=== PATIENT | female | born 1955 | race Caucasian/White ===

== ENCOUNTER 2019-11-26 12:53 | Inpatient (IN) | payer MEDICARE ==
[~2019-11-26] VITALS: Ht 165.1 cm; Wt 106.6 kg
[2019-11-26] MEDS ORDERED: MULTI-DAY VITAM1 TAB PO (13:18)
[2019-11-26] MEDS ORDERED: B COMPLEX (13:18)
[2019-11-26] MEDS ORDERED: VITAMIN B-121000 MCG PO (13:19)
[2019-11-26] MEDS ORDERED: ALEVE220 MG (13:19)
[2019-11-26] MEDS ORDERED: ZOLOFT100 MG PO (13:19)
[2019-11-26] MEDS ORDERED: TUMERIC (13:19)
[2019-11-26] MEDS ORDERED: VITAMIN B-1100 M1 PO (13:19)
[2019-11-26] MEDS ORDERED: CHROMIUM (13:20)
[2019-11-26] MEDS ORDERED: PROBIOTIC (13:20)
[2019-11-26] MEDS ORDERED: CINNAMON500 MG PO (13:20)
[2019-11-26] MEDS ORDERED: LISINOPRIL10 MG PO (13:20)
[2019-11-26] MEDS ORDERED: NEXIUM20 MG PO (13:20)
[2019-11-26] MEDS ORDERED: ULTRAM50 MG PO (13:21)
[2019-11-26] MEDS ORDERED: PRUNELAX (13:21)
[2019-11-26] MEDS ORDERED: BACTRIM DS TAB1 EAC1 PO (13:21)
[2019-11-26] MEDS ORDERED: BENTYL 20 MG TA20 MG PO (13:22)
[2019-11-26 14:01] LABS: HEMOGLOBIN 14.7 g/dL (12-16); LYMPHOCYTES 9.3 % (15-50); MCH 27.2 pg (26.0-34.0); MCHC 31.3 g/dL (31.0-37.0); MEAN PLATELET VOLUME 8.8 fL (7.4-10.4); NEUTROPHILS 86.6 % (40-80); PLATELET COUNT 259 10x3/uL (130-400); RDW 13.1 % (11.5-14.5); WBC 8.5 10x3/uL (4.8-10.8)
[2019-11-26 14:08] LABS: CALC OSMOLALITY 274 mosm/kg (275-300); CALCIUM 9.4 mg/dL (8.5-10.1); CARBON DIOXIDE 27.7 mmol/L (21.0-32.0); CHLORIDE - SERUM 101 mmol/L (98-107); CREATININE - SERUM 1.3 mg/dL (0.6-1.3); GLUCOSE 96 mg/dL (74-106); POTASSIUM - SERUM 4.5 mmol/L (3.5-5.1); SODIUM 136 mmol/L (136-145); UREA NITROGEN 22 mg/dL (7-18); eGFR NON AFRICAN AMERICAN 44 mL/min (90-120)
[2019-11-26 14:17] LABS: ALBUMIN 3.2 g/dL (3.4-5.0); ALKALINE PHOSPHATASE 141 U/L (30-120); ALT (SGPT) 40 U/L (10-68); AMYLASE - SERUM 46 U/L (25-115); BILIRUBIN - TOTAL 0.25 mg/dL (0.2-1.3); LIPASE 50 U/L (73-393); PROTEIN - SERUM 8.1 g/dL (6.4-8.2)
[2019-11-26 14:18] LABS: TROPONIN-I < 0.017 ng/mL (0.000-0.060)
[2019-11-26 16:10] LABS: BILIRUBIN NEGATIVE (NEGATIVE); GLUCOSE NEGATIVE (NEGATIVE); KETONE NEGATIVE (NEGATIVE); NITRITE POSITIVE (NEGATIVE); SPECIFIC GRAVITY 1.005 (1.005-1.020); UROBILINOGEN NORMAL (NORMAL)
[2019-11-26 16:14] LABS: RED CELLS - URINE 0-5 /hpf (0-5); WHITE CELLS - URINE 25-50 /hpf (NEGATIVE)
[2019-11-26 16:15] LABS: BACTERIA MANY /hpf (NEGATIVE); EPITHELIAL CELLS 0-5 /hpf (0-5)
--- NOTE | 2019-11-26 17:38 | NUR ---
CALL TO FLOOR TO SEE IF ROOM WAS READY, STILL DIRTY.
--- NOTE | 2019-11-26 18:06 | NUR ---
DR. SHEPHERD HERE TO SEE PT.
--- NOTE | 2019-11-26 18:42 | NUR ---
RECEIVED PATIENT FROM ER VIA BED. C/O ABDOMINAL PAIN. NO S/S OF ACUTE DISTRESS NOTED. VITALS STABLE. IV TO RIGHT HAND, NS INFUSING @ 125ML/HR. SITE PATENT WITHOUT REDNESS OR SWELLING. AT BEDSIDE. DENIES ANY NEEDS AT THIS TIME. CALL LIGHT IN REACH. WILL CONTINUE TO MONITOR.
[2019-11-26 20:00] VITALS: BP 98/56
[2019-11-26 20:26] LABS: APTT 27.6 SECONDS (22.8-39.4); INR 1.1 (0.85-1.17); PROTIME 14.2 SECONDS (11.6-15.0)
--- NOTE | 2019-11-26 21:35 | NUR ---
INSTRUCTED THAT HER DIET IS WATER ONLY THEN NPO AFTER MIDNIGHT. PT STILL ASKING FOR FOOD. RATES PAIN IN ABD 6 AND DESCRIBES SHARP CRAMPING. NAUSEATED. REPORTS BM TODAY. NS @ 125 MLHR INFUSING IN RT HAND. MEDICATED WITH DILAUDID FOR C/O ABD PAIN. OFFERED ZOFRAN BUT REFUSED AT THIS TIME. GEN WEAKNESS NOTED. ASSISTED UP TO BR TO VOID. CL NOT WORKING AT THIS TIME. NOTIFIED ASSET PROTECTION ASSOCIATE WHO WILL CONTACT MAINTENANCE.
[2019-11-26 21:51] VITALS: BP 98/56; BMI 38.3
--- NOTE | 2019-11-26 22:05 | NUR ---
VOMITED ONCE APPROX 200 ML OF GREEN FLUID. MEDICATED WITH ZOFRAN AT THIS TIME.
--- NOTE | 2019-11-26 23:00 | NUR ---
MAINTENANCE HERE AND FIXED CALL LIGHT.
--- NOTE | 2019-11-27 02:28 | NUR ---
STABLE MANAGER DILAUDID STARTED AT THIS TIME. DENIES PAIN AT PRESENT. INSTRUCTED ON USE AND SHE VERBALIZED UNDERSTANDING.
[2019-11-27 04:00] VITALS: BP 130/63
[2019-11-27 06:02] LABS: HEMATOCRIT 38.1 % (36.0-48.0); HEMOGLOBIN 12.1 g/dL (12-16); LYMPHOCYTES 12.6 % (15-50); MCH 27.7 pg (26.0-34.0); MCHC 31.8 g/dL (31.0-37.0); MCV 87.2 fL (80.0-100.0); MEAN PLATELET VOLUME 8.9 fL (7.4-10.4); NEUTROPHILS 77.4 % (40-80); PLATELET COUNT 247 10x3/uL (130-400); RBC 4.37 10x6/uL (4.00-5.40); RDW 13.1 % (11.5-14.5); WBC 9.3 10x3/uL (4.8-10.8)
[2019-11-27 06:19] LABS: ALBUMIN 2.4 g/dL (3.4-5.0); ANION GAP 10.6 mmol/L (8-16); BILIRUBIN - TOTAL 0.33 mg/dL (0.2-1.3); CARBON DIOXIDE 25.7 mmol/L (21.0-32.0); CREATININE - SERUM 1.1 mg/dL (0.6-1.3); POTASSIUM - SERUM 4.3 mmol/L (3.5-5.1); PROTEIN - SERUM 6.3 g/dL (6.4-8.2)
[2019-11-27 09:08] VITALS: BP 125/66
--- NOTE | 2019-11-27 11:31 | NUR ---
I have reviewed this patient and I concur with the Shift Assessment completed by the Licensed Practical Nurse today this shift.
[2019-11-27 13:06] VITALS: BP 130/56
[2019-11-27 14:26] VITALS: Ht 165.1 cm; Wt 106.6 kg
[2019-11-27 18:04] VITALS: BP 146/77
[2019-11-27 20:00] VITALS: BP 127/60
--- NOTE | 2019-11-27 22:00 | NUR ---
00B, AMBULATING INDEPENDENTLY IN ROOM. DISCONNECTED IV AND COVERED FOR SHOWER, CTM.
[2019-11-28 04:00] VITALS: BP 154/73
[2019-11-28 06:54] LABS: HEMATOCRIT 40.9 % (36.0-48.0); LYMPHOCYTES 16.4 % (15-50); MCH 27.7 pg (26.0-34.0); MCHC 31.8 g/dL (31.0-37.0); MEAN PLATELET VOLUME 8.8 fL (7.4-10.4); NEUTROPHILS 69.7 % (40-80); PLATELET COUNT 244 10x3/uL (130-400); RDW 12.5 % (11.5-14.5)
[2019-11-28 07:00] LABS: WBC 6.7 10x3/uL (4.8-10.8)
[2019-11-28 07:30] LABS: ALBUMIN 2.6 g/dL (3.4-5.0); ANION GAP 13.6 mmol/L (8-16); BILIRUBIN - TOTAL 0.27 mg/dL (0.2-1.3); CALCIUM 8.6 mg/dL (8.5-10.1); CARBON DIOXIDE 24.5 mmol/L (21.0-32.0); MAGNESIUM - SERUM 2.3 mg/dL (1.8-2.4); PHOSPHOROUS 3.1 mg/dL (2.5-4.9); POTASSIUM - SERUM 4.1 mmol/L (3.5-5.1); PROTEIN - SERUM 6.9 g/dL (6.4-8.2)
--- NOTE | 2019-11-28 08:17 | NUR ---
ALERT AND ORIENTED. LUNGS CLEAR BILATERALLY. HEART SOUNDS S1 AND S2 HEARD IN ALL TAVARES. BOWEL SOUNDS ACTIVE X 4. DENIES NEEDS. BED LOW. CALL GRAVES AND PERSONAL ITEMS IN REACH. WILL CONTINUE TO MONITOR.
[2019-11-28 09:29] VITALS: BP 148/71
--- NOTE | 2019-11-28 12:50 | NUR ---
PATIENT REQUESTING HOME MEDS RESTARTED. SPOKE WITH TATO RODRIGUEZ AND STATES WILL TAKE CARE OF.
[2019-11-28 13:00] VITALS: BP 158/71
--- NOTE | 2019-11-28 15:13 | NUR ---
RESTING IN BED. DENIES NEEDS. WILL CONTINUE TO MONITOR.
[2019-11-28 17:55] VITALS: BP 148/70
[2019-11-28 20:00] VITALS: BP 154/81
[2019-11-29 04:00] VITALS: BP 167/77
--- NOTE | 2019-11-29 04:48 | NUR ---
I have reviewed this patient and I concur with the Shift Assessment completed by the Licensed Practical Nurse today this shift.
[2019-11-29 05:54] LABS: HEMATOCRIT 41.3 % (36.0-48.0); HEMOGLOBIN 13.2 g/dL (12-16); LYMPHOCYTES 24.1 % (15-50); MCH 27.7 pg (26.0-34.0); MCV 86.6 fL (80.0-100.0); MEAN PLATELET VOLUME 9.2 fL (7.4-10.4); NEUTROPHILS 62.2 % (40-80); PLATELET COUNT 282 10x3/uL (130-400); RBC 4.77 10x6/uL (4.00-5.40); RDW 12.8 % (11.5-14.5); WBC 6.6 10x3/uL (4.8-10.8)
[2019-11-29 05:56] LABS: ALBUMIN 2.4 g/dL (3.4-5.0); ALKALINE PHOSPHATASE 95 U/L (30-120); ALT (SGPT) 24 U/L (10-68); BILIRUBIN - TOTAL 0.23 mg/dL (0.2-1.3); CALC OSMOLALITY 279 mosm/kg (275-300); CALCIUM 8.7 mg/dL (8.5-10.1); CARBON DIOXIDE 25.2 mmol/L (21.0-32.0); CHLORIDE - SERUM 108 mmol/L (98-107); CREATININE - SERUM 0.8 mg/dL (0.6-1.3); GLUCOSE 108 mg/dL (74-106); PHOSPHOROUS 2.4 mg/dL (2.5-4.9); POTASSIUM - SERUM 3.6 mmol/L (3.5-5.1); PROTEIN - SERUM 6.7 g/dL (6.4-8.2); SODIUM 141 mmol/L (136-145); eGFR NON AFRICAN AMERICAN 76 mL/min (90-120)
[2019-11-29 06:33] LABS: UREA NITROGEN 8 mg/dL (7-18)
--- NOTE | 2019-11-29 07:41 | NUR ---
ALERT AND ORIENTED. LUNGS CLEAR BILATERALLY. HEART SOUNDS S1 AND S2 HEARD IN ALL TAVARES. BOWEL SOUNDS ACTIVE X 4. IV TO RFA PATENT WITHOUT REDNESS. DENIES NEEDS. BED LOW. CALL GRAVES AND PERSONAL ITEMS IN REACH. WILL CONTINUE TO MONITOR.
[2019-11-29 08:30] VITALS: BP 176/88
[2019-11-29] MEDS ORDERED: LEVOFLOXACIN500 MG PO (10:06)
[2019-11-29] MEDS ORDERED: FLAGYL500 MG PO (10:06)
[2019-11-29] MEDS ORDERED: ZOFRAN4 MG PO (10:07)
--- NOTE | 2019-11-29 11:48 | NUR ---
SPOKE WITH TATO RODRIGUEZ AGAIN ABOUT PATIENT'S BP. BP 179/91. NO ORDERS GIVEN.
--- NOTE | 2019-11-29 12:02 | MORECARE ---
CASE MANAGEMENT DISCHARGE SUMMARY PATIENT: ROBERT HORVATH UNIT: [id number] ADM DATE: 11/26/19 AGE: 64 : 55 SEX: F ROOM/BED: D.2224 AUTHOR: JAX GUTIERREZ PHYSICIAN: REFERRING PHYSICIAN: SERENE KELLEY MD DATE OF SERVICE: 11/29/19 Discharge Plan Patient Name: ROB[facility]ATH [facility] [facility] 1955 Planned Disposition: Home Anticipated Discharge Date: Discharge Date: Expected LOS: Initial Reviewer: [email or web address] Initial Review Date: 11/26/2019 Generated: 11/29/19 1:02 pm Patient Name: ROBERT HORVATH Page [phone] at 1202 All edits/amendments must be made on the electronic document DICTATION DATE: 11/29/19 1202 FREEZER WORKER: SONIA 11/29/19 1202 RPT#: [id number] DC DATE: STATUS: ADM IN [facility] [address] [place] [address] END OF REPORT
--- NOTE | 2019-11-29 12:10 | MORECARE ---
CASE MANAGEMENT DISCHARGE SUMMARY PATIENT: ROBERT HORVATH UNIT: [id number] ADM DATE: 11/26/19 AGE: 64 : 55 SEX: F ROOM/BED: D.2224 AUTHOR: JAX GUTIERREZ PHYSICIAN: REFERRING PHYSICIAN: SERENE KELLEY MD DATE OF SERVICE: 11/29/19 Discharge Plan Patient Name: ROBERT HORVATH Facility: [facility]:[place] : 1955 Planned Disposition: Home Anticipated Discharge Date: Discharge Date: Expected LOS: Initial Reviewer: [email or web address] Initial Review Date: 11/26/2019 Generated: 11/29/19 1:10 pm Comments DCP- Discharge Planning Updated by [email or web address]: Reena Mitchell on 11/29/19 11:[address] Patient Name: ROBERT HORVATH Admission Status: ER Accout number: [id number] Admission Date: 11-26-2019 : 1955 Admission Diagnosis: Attending: MALOU Current LOS: 3 Anticipated DC Date: Planned Disposition: Home Primary Insurance: [facility] MEDICARE SOLUTIONS Discharge Planning Comments: CM met with patient at bedside after explaining CM role and obtaining verbal consent. CM discussed availability / needs of home health, REHAB and medical equipment. PATIENT DENIES ANY DISCHARGE NEEDS. IMM SIGNED. ANTICIPATES DISCHARGE TO HOME SOON. Senior Svp: Reena Mitchell DCPIA - Discharge Planning Initial Assessment Updated by [email or web address]: Reena Mitchell on 11/29/19 12:05 pm * Is the patient Alert and Oriented? Yes * PCP MADINA * Pharmacy [facility] * Preadmission Environment Home with Family * ADLs Independent * Equipment None * Community resources currently utilized None * Additional services required to return to the preadmission environment? No * Can the patient safely return to the preadmission environment? Yes * Has this patient been hospitalized within the prior 30 days at any hospital? No Last DP export: 11/29/19 11:02 a Patient Name: ROBERT HORVATH Page [phone] at 1210 All edits/amendments must be made on the electronic document DICTATION DATE: 11/29/19 1210 HAND ENGRAVER: SONIA 11/29/19 1210 RPT#: [id number] DC DATE: STATUS: ADM IN [facility] [address] [place] [address] END OF REPORT
--- NOTE | 2019-11-29 12:13 | NUR ---
PRN APRESOLINE GIVEN FOR BP 179/91.
--- NOTE | 2019-11-29 12:57 | NUR ---
PATIENT SLEEPING. WILL CONTINUE TO MONITOR.
[2019-11-29 20:00] VITALS: BP 144/81
--- NOTE | 2019-11-29 20:00 | NUR ---
PT AT FIRST REQUESTED MIRALAX BE MIXED WITH CRANBERRY JUICE. WHEN RETURNED TO ROOM, PT WAS EXITING BATHROOM. STATED, "I DON'T THINK I WANNA DRINK THAT MIRALAX. I THINK AFTER THOSE FIRST FEW BOWEL MOVEMENTS, THE FLOOD MADISON HAVE BURST!"
[2019-11-30] VITALS: BP 143/75
--- NOTE | 2019-11-30 02:00 | NUR ---
IV LEAKING. PT REPORTS PAIN TO INFUSION SITE. DCd WITH CATH INTACT. CTM.
--- NOTE | 2019-11-30 03:00 | NUR ---
I have reviewed this patient and I concur with the Shift Assessment completed by the Licensed Practical Nurse today this shift.
[2019-11-30 04:00] VITALS: BP 154/86
[2019-11-30 05:33] LABS: ALBUMIN 2.6 g/dL (3.4-5.0); BILIRUBIN - TOTAL 0.32 mg/dL (0.2-1.3); CALCIUM 9.1 mg/dL (8.5-10.1); CARBON DIOXIDE 24.5 mmol/L (21.0-32.0); CREATININE - SERUM 0.9 mg/dL (0.6-1.3); PHOSPHOROUS 2.9 mg/dL (2.5-4.9); POTASSIUM - SERUM 3.5 mmol/L (3.5-5.1)
[2019-11-30 05:42] LABS: HEMATOCRIT 43.8 % (36.0-48.0); HEMOGLOBIN 13.8 g/dL (12-16); LYMPHOCYTES 13.1 % (15-50); MCH 27.2 pg (26.0-34.0); MCHC 31.5 g/dL (31.0-37.0); MCV 86.4 fL (80.0-100.0); MEAN PLATELET VOLUME 8.9 fL (7.4-10.4); NEUTROPHILS 74.9 % (40-80); PLATELET COUNT 310 10x3/uL (130-400); RBC 5.07 10x6/uL (4.00-5.40); RDW 13.1 % (11.5-14.5); WBC 7.7 10x3/uL (4.8-10.8)
--- NOTE | 2019-11-30 07:51 | NUR ---
PT IS RESTING IN BED WITH EYES OPEN. RESPIRATIONS ARE EVEN AND UNLABORED. PT IS AAO X 4. PT REPORTS BM THROUGHOUT RADIO INTERFERENCE EXPERT. PT DENIES PRESENCE OF N/V/PAIN AT THIS TIME. BS ACTIVE X 4. BED IS IN THE LOWEST POSITION. CALL LIGHT AND BEDSIDE TABLE ARE WITHIN REACH. SIDE RAILS X 2. PT DENIES FURTHER NEEDS. WILL CONT TO MONITOR.
[2019-11-30 09:17] VITALS: BP 138/93
[2019-11-30] MEDS ORDERED: MIRALAX17 GM PO (09:30)
--- NOTE | 2019-11-30 10:53 | NUR ---
ALL DISCHARGE INSTRUCTIONS COVERED WITH PT AND PT FAMILY MEMBER. PT DENIES FURTHER QUESTIONS/CONCERNS/NEEDS AT THIS TIME. ALL DISCHARGE PAPERS SIGNED. SIGNED DC PAPERS PLACED IN PT CHART. PT ESCORTED FROM ROOM VIA WHEELCHAIR BY KINJAL MIGUEL LPN. PT THANKS THIS NURSE FOR CARE GIVEN DURING THIS SHIFT. PT STATES THAT SHE HAS ALL PERSONAL BELONGINGS.
--- NOTE | 2019-11-30 15:19 | MORECARE ---
CASE MANAGEMENT DISCHARGE SUMMARY PATIENT: ROBERT HORVATH UNIT: [id number] ADM DATE: 11/26/19 AGE: 64 : 55 SEX: F ROOM/BED: D.2224 AUTHOR: BRENDA,DOC PHYSICIAN: REFERRING PHYSICIAN: SERENE KELLEY MD DATE OF SERVICE: 11/30/19 Discharge Plan Patient Name: ROBERT HORVATH Facility: [facility]:[place] : 1955 Planned Disposition: Home Anticipated Discharge Date: Discharge Date: 11/30/2019 Expected LOS: Initial Reviewer: [email or web address] Initial Review Date: 11/26/2019 Generated: 11/30/19 4:18 pm Comments DCP- Discharge Planning Updated by [email or web address]: Reena Mitchell on 11/29/19 11:[address] Patient Name: ROBERT HORVATH Admission Status: ER Accout number: [id number] Admission Date: 11-26-2019 : 1955 Admission Diagnosis: Attending: MALOU Current LOS: 3 Anticipated DC Date: Planned Disposition: Home Primary Insurance: [facility] MEDICARE SOLUTIONS Discharge Planning Comments: CM met with patient at bedside after explaining CM role and obtaining verbal consent. CM discussed availability / needs of home health, REHAB and medical equipment. PATIENT DENIES ANY DISCHARGE NEEDS. IMM SIGNED. ANTICIPATES DISCHARGE TO HOME SOON. Toe Puncher: Reena Mitchell DCPIA - Discharge Planning Initial Assessment Updated by [email or web address]: Reena Mitchell on 11/29/19 12:05 pm * Is the patient Alert and Oriented? Yes * PCP MADINA * Pharmacy [facility] * Preadmission Environment Home with Family * ADLs Independent * Equipment None * Community resources currently utilized None * Additional services required to return to the preadmission environment? No * Can the patient safely return to the preadmission environment? Yes * Has this patient been hospitalized within the prior 30 days at any hospital? No Coverage Notice Reviewer: [id number] - Reena Mitchell Notice Issued Date-Time: 11/30/2019 10:17 Notice Type: IM Discharge Notice Notice Delivered To: Patient Relationship to Patient: Network Announcer Name: Delivery Method: - Jennifer Days: Prior Verbal Notification: Recipient Understood Notice: Recipient Signature: Med Rec Note Co-signed by Attending: Coverage Notice Comment: Last DP export: 7/15/20 11:10 a Patient Name: ROBERT HORVATH Page [phone] at 1519 All edits/amendments must be made on the electronic document DICTATION DATE: 11/30/198 FIELD CARE ADVOCATE: SONIA 11/30/19 1518 RPT#: [id number] DC DATE:11/30/19 STATUS: DIS IN [facility] [address] [place] [address] END OF REPORT
--- NOTE | 2019-12-01 08:16 | MORECARE ---
CASE MANAGEMENT DISCHARGE SUMMARY PATIENT: ROBERT HORVATH UNIT: [id number] ADM DATE: 11/26/19 AGE: 64 : 55 SEX: F ROOM/BED: D.2224 AUTHOR: BRENDA,DOC PHYSICIAN: REFERRING PHYSICIAN: SERENE KELLEY MD DATE OF SERVICE: 12/01/19 Discharge Plan Patient Name: ROBERT HORVATH Facility: [facility]:[place] : 1955 Planned Disposition: Home Anticipated Discharge Date: Discharge Date: 11/30/2019 Expected LOS: Initial Reviewer: [email or web address] Initial Review Date: 11/26/2019 Generated: 12/01/19 9:15 am Comments DCP- Discharge Planning Updated by [email or web address]: Reena Mitchell on 11/29/19 11:[address] Patient Name: ROBERT HORVATH Admission Status: ER Accout number: [id number] Admission Date: 11-26-2019 : 1955 Admission Diagnosis: Attending: MALOU Current LOS: 3 Anticipated DC Date: Planned Disposition: Home Primary Insurance: [facility] MEDICARE SOLUTIONS Discharge Planning Comments: CM met with patient at bedside after explaining CM role and obtaining verbal consent. CM discussed availability / needs of home health, REHAB and medical equipment. PATIENT DENIES ANY DISCHARGE NEEDS. IMM SIGNED. ANTICIPATES DISCHARGE TO HOME SOON. Informaticist: Reena Mitchell DCPIA - Discharge Planning Initial Assessment Updated by [email or web address]: Reena Mitchell on 11/29/19 12:05 pm * Is the patient Alert and Oriented? Yes * PCP MADINA * Pharmacy [facility] * Preadmission Environment Home with Family * ADLs Independent * Equipment None * Community resources currently utilized None * Additional services required to return to the preadmission environment? No * Can the patient safely return to the preadmission environment? Yes * Has this patient been hospitalized within the prior 30 days at any hospital? No Coverage Notice Reviewer: [id number] - Reena Mitchell Notice Issued Date-Time: 11/30/2019 10:17 Notice Type: IM Discharge Notice Notice Delivered To: Patient Relationship to Patient: Sales And Marketing Engineer Name: Delivery Method: - Jennifer Days: Prior Verbal Notification: Recipient Understood Notice: Recipient Signature: Med Rec Note Co-signed by Attending: Coverage Notice Comment: Last DP export: 7/16/20 2:18 p Patient Name: ROBERT HORVATH Page 38686 at 0816 All edits/amendments must be made on the electronic document DICTATION DATE: 12/01/19814 AUDOGRAPH OPERATOR: SONIA 12/01/19814 RPT#: [id number] DC DATE:11/30/19 STATUS: DIS IN [facility] [address] [place] [address] END OF REPORT
== END 2019-11-30 11:30 | disposition home or self-care (01) | DRG 391 ==
LOC: D.ER 12:53 → D.MS 16:46
PROVIDERS: Family Medicine; Family Medicine Adult Medicine; ADMIT Family Medicine; ATTEND Family Medicine
DX: K57.92 Diverticulitis of intestine, part unspecified, without perforation or abscess without bleeding (principal); K65.9 Peritonitis, unspecified; N39.0 Urinary tract infection, site not specified; F32.9 Major depressive disorder, single episode, unspecified; I10 Essential (primary) hypertension

== ENCOUNTER 2019-12-04 14:43 | Inpatient (IN) | payer MEDICARE ==
[~2019-12-04] VITALS: Ht 165.1 cm; Wt 106.2 kg
[~2019-12-04 14:43] MED LIST: ALEVE220 MG; B COMPLEX; BACTRIM DS TAB1 EAC1 PO; BENTYL 20 MG TA20 MG PO; CHROMIUM; CINNAMON500 MG PO; FLAGYL500 MG PO; LEVOFLOXACIN500 MG PO; LISINOPRIL10 MG PO; MIRALAX17 GM PO; MULTI-DAY VITAM1 TAB PO; NEXIUM20 MG PO; PROBIOTIC PO; PRUNELAX; TUMERIC PO; ULTRAM50 MG PO; VITAMIN B-1100 M1 PO; VITAMIN B-121000 MCG PO; ZOFRAN4 MG PO; ZOLOFT100 MG PO
[2019-12-04 15:44] LABS: BASOPHILS 0.1 % (0-2); EOSINOPHILS 0.3 % (0-7); HEMATOCRIT 45.7 % (36.0-48.0); HEMOGLOBIN 14.8 g/dL (12-16); IMMATURE GRANULOCYTES 0.3 % (0-5); LYMPHOCYTES 8.4 % (15-50); MCH 28.1 pg (26.0-34.0); MCHC 32.4 g/dL (31.0-37.0); MCV 86.7 fL (80.0-100.0); MONOCYTES 8.3 % (2-11); NEUTROPHILS 82.6 % (40-80); PLATELET COUNT 291 10x3/uL (130-400); RBC 5.27 10x6/uL (4.00-5.40); RDW 13.8 % (11.5-14.5); WBC 16.2 10x3/uL (4.8-10.8)
[2019-12-04 16:06] LABS: CALC OSMOLALITY 267 mosm/kg (275-300); CALCIUM 9.4 mg/dL (8.5-10.1); CARBON DIOXIDE 27.6 mmol/L (21.0-32.0); CHLORIDE - SERUM 98 mmol/L (98-107); CREATININE - SERUM 1.1 mg/dL (0.6-1.3); GLUCOSE 119 mg/dL (74-106); POTASSIUM - SERUM 4.2 mmol/L (3.5-5.1); SODIUM 132 mmol/L (136-145); UREA NITROGEN 17 mg/dL (7-18); eGFR NON AFRICAN AMERICAN 53 mL/min (90-120)
[2019-12-04 16:15] LABS: ALKALINE PHOSPHATASE 116 U/L (30-120); ALT (SGPT) 40 U/L (10-68); AMYLASE - SERUM 35 U/L (25-115); BILIRUBIN - TOTAL 0.65 mg/dL (0.2-1.3)
[2019-12-04 16:29] LABS: LIPASE 45 U/L (73-393); TROPONIN-I < 0.017 ng/mL (0.000-0.060)
[2019-12-04 16:48] VITALS: BP 120/61
--- NOTE | 2019-12-04 16:49 | NUR ---
URINE SPEC COLLECTED, LABELED AT BS AND SENT TO LAB
[2019-12-04 17:07] LABS: BILIRUBIN NEGATIVE (NEGATIVE); GLUCOSE NEGATIVE (NEGATIVE); KETONE NEGATIVE (NEGATIVE); NITRITE NEGATIVE (NEGATIVE); UROBILINOGEN NORMAL (NORMAL)
[2019-12-04 17:09] LABS: BACTERIA MODERATE /hpf (NEGATIVE); EPITHELIAL CELLS 0-5 /hpf (0-5); RED CELLS - URINE 0-5 /hpf (0-5); WHITE CELLS - URINE 25-50 /hpf (NEGATIVE)
[2019-12-04 18:32] VITALS: BP 109/51
--- NOTE | 2019-12-04 18:44 | NUR ---
REPORT CALLED TO LEONILA CROOK
--- NOTE | 2019-12-04 18:50 | NUR ---
TRANSPORTED TO ROOM #2239, CONDITION STABLE
[2019-12-04 20:00] VITALS: BP 120/61
[2019-12-04 22:44] LABS: APTT 35.6 SECONDS (22.8-39.4); INR 1.14 (0.85-1.17); PROTIME 14.5 SECONDS (11.6-15.0)
[2019-12-05] VITALS (7 sets, daily range): BP systolic 93–131; BP diastolic 53–91; Ht 165.1 cm; Wt 106.2 kg
--- NOTE | 2019-12-05 01:03 | NUR ---
REC'D. CHGE OF SHIFT WALKING ROUNDS IN BED WATCHING TV DENIES ANY DISCOMFORT AT PRESENT TIME.NO NAUSEA REMAINS NPO ORDERED VOICES UNDERSTANDING.WILL CONTINUE TO MONITOR FOR ANY CHGES AND FOLLOW CURRENT PLAN OF CARE,GROSSLY CACHIL DEHE.
[2019-12-05 06:02] LABS: BASOPHILS 0.2 % (0-2); EOSINOPHILS 0.9 % (0-7); HEMATOCRIT 40.6 % (36.0-48.0); HEMOGLOBIN 12.9 g/dL (12-16); IMMATURE GRANULOCYTES 0.3 % (0-5); LYMPHOCYTES 13.7 % (15-50); MCH 27.7 pg (26.0-34.0); MCHC 31.8 g/dL (31.0-37.0); MCV 87.1 fL (80.0-100.0); MEAN PLATELET VOLUME 9.1 fL (7.4-10.4); MONOCYTES 10.6 % (2-11); NEUTROPHILS 74.3 % (40-80); PLATELET COUNT 249 10x3/uL (130-400); RBC 4.66 10x6/uL (4.00-5.40); WBC 12.2 10x3/uL (4.8-10.8)
[2019-12-05 06:48] LABS: ALBUMIN 2.4 g/dL (3.4-5.0); ANION GAP 12.4 mmol/L (8-16); BILIRUBIN - TOTAL 0.47 mg/dL (0.2-1.3); CALCIUM 8.9 mg/dL (8.5-10.1); CARBON DIOXIDE 24.8 mmol/L (21.0-32.0); MAGNESIUM - SERUM 2.2 mg/dL (1.8-2.4); POTASSIUM - SERUM 4.2 mmol/L (3.5-5.1); PROTEIN - SERUM 6.9 g/dL (6.4-8.2)
--- NOTE | 2019-12-05 07:40 | NUR ---
ALERT AND ORIENTED. LUNGS CLEAR BILATERALLY. HEART SOUNDS S1 AND S2 HEARD IN ALL TAVARES. BOWEL SOUNDS ACTIVE X 4. NEED TO START IV ON PATIENT. REQUESTING TO TAKE SHOWER FIRST. SUPPLIES GIVEN. DENIES FURTHER NEEDS. BED LOW. CALL GRAVES AND PERSONAL ITEMS IN REACH. WILL CONTINUE TO MONITOR.
--- NOTE | 2019-12-05 08:33 | NUR ---
IV SITED TO RFA AFTER ONE ATTEMPT WITH 20GAUGE.
--- NOTE | 2019-12-05 09:41 | NUR ---
CONSENTS OBTAINED FOR PROCEDURE.
--- NOTE | 2019-12-05 11:40 | NUR ---
RESTING IN BED. AT BEDSIDE. DENIES NEEDS. WILL CONTINUE TO MONITOR.
[2019-12-06] VITALS: BP 142/82
--- NOTE | 2019-12-06 00:16 | NUR ---
REC'D. CHGE OF SHIFT WALKING ROUNDS,IN BED AT BEDSIDE,DENIES ANY DISCOMFORT AT PRESENT TIME NO NAUSEA REMAINS NPO WILL CONTINUE TO MONITOR FOR ANY CHGES AND FOLLOW CURRENT PLAN OF CARE.
[2019-12-06 04:00] VITALS: BP 119/54
[2019-12-06 05:34] LABS: BASOPHILS 0.1 % (0-2); HEMATOCRIT 40.1 % (36.0-48.0); HEMOGLOBIN 12.5 g/dL (12-16); IMMATURE GRANULOCYTES 0.3 % (0-5); LYMPHOCYTES 14.2 % (15-50); MCH 27.5 pg (26.0-34.0); MCHC 31.2 g/dL (31.0-37.0); MCV 88.3 fL (80.0-100.0); MONOCYTES 9.1 % (2-11); NEUTROPHILS 75.3 % (40-80); PLATELET COUNT 245 10x3/uL (130-400); RBC 4.54 10x6/uL (4.00-5.40); WBC 10.2 10x3/uL (4.8-10.8)
[2019-12-06 06:05] LABS: ALBUMIN 2.3 g/dL (3.4-5.0); ANION GAP 10.2 mmol/L (8-16); BILIRUBIN - TOTAL 0.43 mg/dL (0.2-1.3); CALCIUM 8.8 mg/dL (8.5-10.1); CREATININE - SERUM 0.9 mg/dL (0.6-1.3); MAGNESIUM - SERUM 2.1 mg/dL (1.8-2.4); POTASSIUM - SERUM 4.2 mmol/L (3.5-5.1); PROTEIN - SERUM 6.8 g/dL (6.4-8.2)
--- NOTE | 2019-12-06 07:15 | NUR ---
REC'D IN BED AWAKE AND ALERT. RESP EVEN AND UNLABORED WITH NO DISTRESS NOTED. CAN EXPRESS NEEDS AND WANTS. NO C/O NOTED OR VOICED. DENIES ANY PAIN OR DISCOMFORT AT THIS TIME. ASSESSMENT COMPLETED. C/L IN REACH AT BEDSIDE.
[2019-12-06 08:00] VITALS: BP 149/79
--- NOTE | 2019-12-06 08:31 | NUR ---
PT OFF FLOOR TO SURGERY SUITE AT THIS TIME IN STABLE CONDITION UPON DEPARTURE. AT SIDE.
--- NOTE | 2019-12-06 12:46 | NUR ---
EMPTIED PTS GABBY DRAIN OF 85CC BLOOD FROM L.ABDOMEN. MILKED TUBING AND GABBY BACK COMPRESSED.
[2019-12-06 13:03] VITALS: BP 153/72
--- NOTE | 2019-12-06 13:11 | NUR ---
JUST REC'D BACK FROM SURGERY AT THIS TIME AWAKE OFF AND ON. RESP EVEN AND UNLABORED WITH NO DISTRESS NOTED. CAN EXPRESS NEEDS AND WANTS. HAS MIDLINE INCISION WITH DRESSING CLEAN DRY AND INTACT, DRAIN TO RT LOWER QUADRANT AND OSTOMY TO LLQ. PT C/O SEVERE PAIN AT THIS TIME. AND C/L IN REACH AT BEDSIDE.
[2019-12-06 16:11] VITALS: BP 117/65
--- NOTE | 2019-12-06 19:56 | NUR ---
I have reviewed this patient and I concur with the Shift Assessment completed by the Licensed Practical Nurse today this shift.
[2019-12-06 20:00] VITALS: BP 120/61
--- NOTE | 2019-12-06 21:18 | NUR ---
REC'D CHGE OF SHIFT WALKING ROUNDS.IN BED TURNED TO LEFT SIDE .MIDLINE DRSG DRY AND INTACT.GABBY DRAIN LLQ, RIGHT COLOSTOMY INTACT MARINO PATENT DRAING CRISTEL COLORED URINE. AT BEDSIDE WILL CONTINUE TO MONITOR FOR ANY CGES AND FOLLOW CURRENT PLAN OF CARE
[2019-12-07 04:00] VITALS: BP 87/56
--- NOTE | 2019-12-07 06:50 | NUR ---
I have reviewed this patient and I concur with the Shift Assessment completed by the Licensed Practical Nurse today this shift.
[2019-12-07 07:13] LABS: BASOPHILS 0.1 % (0-2); EOSINOPHILS 0.1 % (0-7); HEMOGLOBIN 11.9 g/dL (12-16); IMMATURE GRANULOCYTES 0.7 % (0-5); LYMPHOCYTES 6.7 % (15-50); MCH 27.2 pg (26.0-34.0); MCHC 29.8 g/dL (31.0-37.0); MONOCYTES 7.1 % (2-11); NEUTROPHILS 85.3 % (40-80); PLATELET COUNT 288 10x3/uL (130-400); RBC 4.37 10x6/uL (4.00-5.40); RDW 14.2 % (11.5-14.5)
[2019-12-07 07:28] LABS: MCV 91.5 fL (80.0-100.0); WBC 14.6 10x3/uL (4.8-10.8)
[2019-12-07 07:37] LABS: ALBUMIN 2.2 g/dL (3.4-5.0); BILIRUBIN - TOTAL 0.65 mg/dL (0.2-1.3); CALCIUM 8.8 mg/dL (8.5-10.1); CARBON DIOXIDE 28.2 mmol/L (21.0-32.0); MAGNESIUM - SERUM 2.3 mg/dL (1.8-2.4); PROTEIN - SERUM 6.5 g/dL (6.4-8.2)
[2019-12-07 07:38] LABS: ANION GAP 10.2 mmol/L (8-16); CREATININE - SERUM 1.9 mg/dL (0.6-1.3); POTASSIUM - SERUM 5.4 mmol/L (3.5-5.1)
[2019-12-07 08:00] VITALS: BP 100/64
--- NOTE | 2019-12-07 08:41 | OP ---
PATIENT NAME: ROBERT HORVATH MEDICAL RECORD: [id number] :[birth year] LOCATION:[id number] ADMISSION DATE:12/04/19 SURGEON: NICOLASA AHMADI MD DATE OF OPERATION: 12/06/2019 PREOPERATIVE DIAGNOSIS: Perforated sigmoid diverticulitis. POSTOPERATIVE DIAGNOSES: 1. Perforated sigmoid diverticulitis with coloenteric fistula. 2. Intra-abdominal abscess. ANESTHESIA: General SURGEON: Nicolasa Ahmadi MD PROCEDURE PERFORMED: 1. Laparoscopic drainage of intra-abdominal abscess. 2. Laparoscopic mobilization of the splenic flexure. 3. Sigmoid colectomy with diverting loop ileostomy. 4. Appendectomy. 5. Small bowel resection. SPECIMENS: Sigmoid colon, appendix, small bowel resection. Case was grossly contaminated. OPERATIVE COURSE: After consent was obtained, the patient was taken to the operating room and placed in supine position on the operating table. Next, general anesthesia was given via endotracheal intubation after a timeout was performed to confirm correct patient and procedure. The abdomen was then prepped and draped in typical sterile fashion. Ioban dressing was placed. The patient was placed into stirrups. The perineum was prepped and draped in typical sterile fashion. Local anesthetic was injected just below the umbilicus. A stab incision was made with an 11-blade scalpel. Using a 5-mm bladeless optical trocar, the abdomen was entered under direct laparoscopic vision. Adequate pneumoperitoneum was achieved. Two additional trocars were then placed, 5 mm in the suprapubic region, 5 mm in the right lower quadrant, both were placed under direct laparoscopic vision. The sigmoid colon was densely adherent to the pelvic side wall along the left pelvic sidewall. There were 2 loops of densely adherent small bowel to the sigmoid colon along the left pelvic side wall into the deep pelvis. Gentle dissection was started to attempt to tease the sigmoid colon off the pelvic side wall during this time to delineate anatomy. The healthy tissue proximal was taken. The white line of Toldt was taken down with the Harmonic scalpel mobilizing to the level of the splenic flexure. As the sigmoid colon was teased off the pelvic sidewall, abscess noted on the preoperative CT scan was encountered. It was copiously suctioned and irrigated. At this time, dissection continued down into the deep pelvis. Again, further mobilizing the diseased portion of colon at the pelvic sidewall on the medial side of the sigmoid colon. There was very dense adhesions to a loop of small bowel that was looping into the deep pelvis. This was gently teased and dissected away. Once this was completed, there was noted there was an active open fistula between the colon and small bowel. At this time, I decided I would perform a sigmoid colectomy due to the extensive disease of the sigmoid colon. Small low midline incision was made, dissecting through the subcutaneous fascia using electrocautery. Fascia was opened with electrocautery. An Long wound retractor was placed. The small bowel was OPERATIVE REPORT [id number] ROBERT HORVATH extracorporealized. The area of distal ileum had a fistula tract in sigmoid colon. I started to do a small bowel resection. A ipta-nd-xpau anastomosis was performed. Several stay sutures were placed in the small bowel. Enterotomies were made with the Harmonic scalpel. A [id number] anastomosis performed with GI stapler. The common enterotomy was then closed with a second fire of the KAREN stapler. The remaining portion of the mesentery was taken with the Harmonic scalpel and the small bowel section was passed off the field and sent for permanent pathology. The rest of the small bowel was run from the terminal ileum to ligament of Treitz. There is no evidence of bowel injury. No evidence of bleeding. No evidence of leakage. A mesenteric window was created in the descending colon. KAREN stapler was then used to transect the distal descending colon. The mesentery of the sigmoid colon was then taken with the Harmonic scalpel to the level of the rectum. Once we were beyond the diseased section of the sigmoid colon distally and on the rectum, a second mesenteric window was created using a contour stapler. The sigmoid colon was transected distally with a green load contour stapler. The colon was passed off the field and sent for permanent pathology. Again, the abdomen was then copiously irrigated and suctioned. The left ureter was dissected and identified in its normal anatomical position without injury. There was significant length of the sigmoid colon. At this time, I decided to perform a colorectal anastomosis using the 25-mm EEA stapler. The staple line of the sigmoid colon was opened. A 25 mm anvil was placed. The colotomy was then closed with a second firing of the KAREN stapler. Rectal sizers were placed into the rectum. The 25 mm EEA stapler was then passed from the rectum. The spike was deployed through the rectum and attached to the EEA anvil. The device was closed and held in place for 30 seconds. It was then fired and held for an additional 30 seconds. It was removed with 2 intact donuts, which were sent with the pathology specimen. The suture line was then reinforced using interrupted 3-0 Vicryl suture. Prior to the reinforcement, after the EEA was fired, I rescrubbed into the operative field. The staple line was then reinforced with interrupted 3-0 Vicryl suture and BioGlue. A long section of omentum was created using the Harmonic scalpel, which was placed into the plan of the abdomen on the anterior surface of the colorectal anastomosis between the colorectal anastomosis in the vagina. A GABBY drain was placed into the left pelvic side wall. At this time, the area of small bowel resection was in the distal 15-20 cm of the distal small-bowel. A diverting loop ileostomy was created in the right lower quadrant. A circular skin incision was made. Subcutaneous tissue was dissected with electrocautery. The fascia was opened with a cruciate incision. The peritoneum was opened with electrocautery. The diverting loop ileostomy was then delivered through the right lower quadrant incision. The abdomen was copiously irrigated and suctioned. The fascia was closed with #1 looped PDS. Skin was closed with ade. At this time, a standard loop ileostomy was created in a Evangelina fashion using interrupted 3-0 Vicryl suture. Prior to closure of the abdomen as we performed a loop ileostomy, it was decided to do an incidental appendectomy. A mesenteric window was created at the base of the appendix, a GI stapler was used to transect the appendix, staple line was imbricated with 3-0 Vicryl suture. The mesentery was taken with Harmonic scalpel and the appendix was sent for permanent pathology. After copious irrigation of the abdomen, the fascia was closed using #1 looped PDS. The loop ileostomy, which had been delivered through the incision prior was then opened and a standard loop Evangelina ileostomy was fashioned in the right lower quadrant. An ostomy bag was placed. Sterile gauze dressing was placed in the abdomen. The patient was extubated and transferred to the recovery room in satisfactory condition. TRANSINT:[id number] Voice Confirmation ID: [id number] DOCUMENT ID: [id number] OPERATIVE REPORT [id number] ROBERT HORVATH,NICOLASA Simon MD at 0841 CC: [id number] DICTATION DATE: 12/06/19 1248 WHARF OPERATOR: 12/06/19 2143 ADM IN [facility] [address] [place] [id number]
[2019-12-07 12:11] VITALS: BP 93/58
--- NOTE | 2019-12-07 12:17 | NUR ---
OSTOMY BAG OPEN, BLOOD NOTED TO PATIENTS GOWN AND BED. TATO MONTENEGRO IN ROOM ASSESSING PATIENT. NO ORDERS GIVEN AT THIS TIME. BEDDING CHANGED. CO2 MONITOR PLACED.
--- NOTE | 2019-12-07 13:37 | NUR ---
Nutrition follow-up: Pt s/p colectomy with colostomy placement Diet: Clear liquids Labs reviewed WT: [id number]# Will need nutrition support started within 24 hours if diet unable to advance past clears. RDN following.
[2019-12-07 16:08] VITALS: BP 113/54
[2019-12-07 20:00] VITALS: BP 101/57
--- NOTE | 2019-12-08 01:32 | NUR ---
LATE ENTRY: 11/26/19: FLAGYL STOPPED AT 1754 ON 11/26/19
--- NOTE | 2019-12-08 02:25 | NUR ---
ASSESSED AT THE BEGINNING OF THE SHIFT. PT IS ALERT AND ORIENTED, ABLE TO VERBALIZE NEEDS. IS SPENDING THE NIGHT. SHE HAS A DRESSING TO ABD WITH A MIDLINE INCISION AND ALSO A GABBY DRAIN ON THE LEFT SIDE. HER COLOSTOMY REMAINS EMPTY OF STOOL AND THERE IS A MARINO CATH IN PLACE. THERE HAS BEEN SOME TIMES WHEN HER O2 SAT GOES DOWN AND WE HAVE TO STIMULATE HER AND MAKE HER TAKE A DEEP BREATH HER O2 IS 3 LITERS N/C. SHE HAS BEEN GIVEN PAIN MEDS NEEDS.
[2019-12-08 04:00] VITALS: BP 114/67
[2019-12-08 04:58] LABS: BASOPHILS 0.1 % (0-2); EOSINOPHILS 0.1 % (0-7); HEMOGLOBIN 10.3 g/dL (12-16); IMMATURE GRANULOCYTES 0.6 % (0-5); LYMPHOCYTES 5.7 % (15-50); MCH 27.1 pg (26.0-34.0); MCHC 29.4 g/dL (31.0-37.0); MCV 92.1 fL (80.0-100.0); MONOCYTES 7.6 % (2-11); NEUTROPHILS 85.9 % (40-80); PLATELET COUNT 255 10x3/uL (130-400); RDW 14.3 % (11.5-14.5); WBC 15.5 10x3/uL (4.8-10.8)
[2019-12-08 05:25] LABS: ALBUMIN 1.9 g/dL (3.4-5.0); ANION GAP 8.8 mmol/L (8-16); BILIRUBIN - TOTAL 0.28 mg/dL (0.2-1.3); CALCIUM 8.2 mg/dL (8.5-10.1); CARBON DIOXIDE 25.9 mmol/L (21.0-32.0); CREATININE - SERUM 1.5 mg/dL (0.6-1.3); MAGNESIUM - SERUM 2.1 mg/dL (1.8-2.4); POTASSIUM - SERUM 4.7 mmol/L (3.5-5.1)
--- NOTE | 2019-12-08 07:15 | NUR ---
REC'D IN BED WITH EYES CLOSED EASILY TO AROUSED WHEN NAME IS CALLED. RESP EVEN AND UNLABORED WITH NO DISTRESS NOTED. CAN EXPRESS NEEDS AND WANTS. ASSISTANCE GIVEN TO REPOSITION. HUBSAND AND C/L IN REACH AT BEDSIDE.
[2019-12-08 08:13] VITALS: BP 163/91
--- NOTE | 2019-12-08 10:30 | NUR ---
PT OUT OF BED TO CHAIR AT THIS TIME. TOLERATED WELL. ASSISTANCE X 2. C/L IN REACH AT BEDSIDE.
[2019-12-08 10:53] LABS: INR 1.22 (0.85-1.17); PROTIME 15.3 SECONDS (11.6-15.0)
[2019-12-08 11:56] VITALS: BP 145/88
--- NOTE | 2019-12-08 13:15 | NUR ---
ASSISTED BACK TO BED AT THIS TIME VIA NURSE AND PT. TOLERATED WELL. DRESSING CHANGE TO MIDLINE ONCE BACK TO BED. AND C/L IN REACH AT BEDSIDE.
[2019-12-08 15:22] VITALS: BP 170/84
[2019-12-08 20:00] VITALS: BP 144/72
[2019-12-09 04:00] VITALS: BP 178/99
[2019-12-09 08:27] LABS: BASOPHILS 0.1 % (0-2); EOSINOPHILS 1.1 % (0-7); HEMATOCRIT 31.2 % (36.0-48.0); HEMOGLOBIN 9.7 g/dL (12-16); IMMATURE GRANULOCYTES 0.5 % (0-5); LYMPHOCYTES 6.6 % (15-50); MCH 27.8 pg (26.0-34.0); MCHC 31.1 g/dL (31.0-37.0); MEAN PLATELET VOLUME 8.5 fL (7.4-10.4); MONOCYTES 6.6 % (2-11); NEUTROPHILS 85.1 % (40-80); PLATELET COUNT 228 10x3/uL (130-400); RBC 3.49 10x6/uL (4.00-5.40); RDW 14.1 % (11.5-14.5); WBC 13.3 10x3/uL (4.8-10.8)
[2019-12-09 08:28] LABS: MCV 89.4 fL (80.0-100.0)
[2019-12-09 08:46] LABS: ALBUMIN 1.7 g/dL (3.4-5.0); ALKALINE PHOSPHATASE 86 U/L (30-120); ALT (SGPT) 470 U/L (10-68); BILIRUBIN - TOTAL 0.33 mg/dL (0.2-1.3); CALC OSMOLALITY 275 mosm/kg (275-300); CARBON DIOXIDE 27.6 mmol/L (21.0-32.0); CHLORIDE - SERUM 106 mmol/L (98-107); CREATININE - SERUM 0.7 mg/dL (0.6-1.3); GLUCOSE 101 mg/dL (74-106); MAGNESIUM - SERUM 2.1 mg/dL (1.8-2.4); POTASSIUM - SERUM 4.2 mmol/L (3.5-5.1); PROTEIN - SERUM 5.1 g/dL (6.4-8.2); SODIUM 137 mmol/L (136-145); UREA NITROGEN 17 mg/dL (7-18); eGFR NON AFRICAN AMERICAN 89 mL/min (90-120)
--- NOTE | 2019-12-09 08:49 | NUR ---
RESTING IN BED, IN ROOM, NO DISTRESS NOTED, MEDICATED FOR PAIN
[2019-12-09 10:44] VITALS: BP 157/88
--- NOTE | 2019-12-09 14:17 | NUR ---
UP IN CHAIR FOR 1 1/2 HR, CHARLIE WELL, IV INFUSING, REINFORCED ABD DRESSING, EMPTIES COLOSTOMY BAG OF 200C GREENISH LIQUID
[2019-12-09 17:43] VITALS: BP 156/92
[2019-12-09 20:00] VITALS: BP 144/66
--- NOTE | 2019-12-09 22:55 | NUR ---
RESTING QUEITLY WITHOUT COMPLAINTS VOICED. RESP UNALBORED. IV TO LFA INTACT WITHOUT REDNESS OR EDEMA NOTED. DRESSING TO ABD INTACT WITHOUT DRAINAGE. GABBY DRAIN PATENT AND COMPRESSED. OSTOMY BAG INTACT WITH DARK GREEN DRAINAGE NOTED. CL IN REACH. AT BEDSIDE.
[2019-12-10 04:00] VITALS: BP 153/80
[2019-12-10 07:08] LABS: BASOPHILS 0.1 % (0-2); EOSINOPHILS 3.8 % (0-7); HEMATOCRIT 29.4 % (36.0-48.0); IMMATURE GRANULOCYTES 0.4 % (0-5); LYMPHOCYTES 12.2 % (15-50); MCH 27.4 pg (26.0-34.0); MCHC 30.6 g/dL (31.0-37.0); MCV 89.6 fL (80.0-100.0); MEAN PLATELET VOLUME 8.9 fL (7.4-10.4); NEUTROPHILS 72.5 % (40-80); PLATELET COUNT 228 10x3/uL (130-400); RBC 3.28 10x6/uL (4.00-5.40); RDW 14.2 % (11.5-14.5)
[2019-12-10 07:16] LABS: WBC 9.4 10x3/uL (4.8-10.8)
[2019-12-10 07:35] LABS: ALBUMIN 1.5 g/dL (3.4-5.0); ALKALINE PHOSPHATASE 81 U/L (30-120); BILIRUBIN - TOTAL 0.27 mg/dL (0.2-1.3); CALC OSMOLALITY 280 mosm/kg (275-300); CALCIUM 8.1 mg/dL (8.5-10.1); CHLORIDE - SERUM 110 mmol/L (98-107); CREATININE - SERUM 0.6 mg/dL (0.6-1.3); GLUCOSE 86 mg/dL (74-106); POTASSIUM - SERUM 4.2 mmol/L (3.5-5.1); PROTEIN - SERUM 5.5 g/dL (6.4-8.2); SODIUM 141 mmol/L (136-145); UREA NITROGEN 16 mg/dL (7-18); eGFR NON AFRICAN AMERICAN > 90 mL/min (90-120)
[2019-12-10 07:36] LABS: ALT (SGPT) 318 U/L (10-68)
--- NOTE | 2019-12-10 07:48 | NUR ---
I have reviewed this patient and I concur with the Shift Assessment completed by the Licensed Practical Nurse today this shift.
--- NOTE | 2019-12-10 07:56 | NUR ---
RESTING IN BED, NO DISTRESS NOTED, FAMILY IN ROOM, STATES THAT SHE SLEPT BETTER, MARINO TO GRAVITY
[2019-12-10 08:00] VITALS: BP 150/75
--- NOTE | 2019-12-10 14:40 | NUR ---
DRESSING REINFORCED TO LOWER ABD, MOIST WITH SEROSANG FLUID
[2019-12-10 18:26] VITALS: BP 174/85
[2019-12-10 20:00] VITALS: BP 122/82
--- NOTE | 2019-12-10 22:13 | NUR ---
AROUSES EASILY TO STIMULI.NO COMPLAITNS VOICED. IV TO RFA INTACT WIHTOUT REDNESSS OR EDEMA NOTED. CLIPS INTACT TO MIDLINE INCISION.GABBY DRAIN TO LEFT ABD INTACT AND COMPRESSED. OSTOMY TO RIGHT ABD WITH DARK GREEN DRAINAGE NOTED. CL IN REACH
[2019-12-11] VITALS: BP 168/83
[2019-12-11 04:00] VITALS: BP 197/106
--- NOTE | 2019-12-11 04:16 | NUR ---
I have reviewed this patient and I concur with the Shift Assessment completed by the Licensed Practical Nurse today this shift.
[2019-12-11 05:20] LABS: ALBUMIN 1.6 g/dL (3.4-5.0); ALKALINE PHOSPHATASE 95 U/L (30-120); ALT (SGPT) 258 U/L (10-68); BILIRUBIN - TOTAL 0.25 mg/dL (0.2-1.3); CALCIUM 8.6 mg/dL (8.5-10.1); CARBON DIOXIDE 29.7 mmol/L (21.0-32.0); CHLORIDE - SERUM 107 mmol/L (98-107); CREATININE - SERUM 0.7 mg/dL (0.6-1.3); GLUCOSE 94 mg/dL (74-106); POTASSIUM - SERUM 3.6 mmol/L (3.5-5.1); PROTEIN - SERUM 5.8 g/dL (6.4-8.2); SODIUM 141 mmol/L (136-145); eGFR NON AFRICAN AMERICAN 89 mL/min (90-120)
[2019-12-11 05:22] LABS: CALC OSMOLALITY 279 mosm/kg (275-300); UREA NITROGEN 10 mg/dL (7-18)
[2019-12-11 05:24] LABS: BASOPHILS 0.3 % (0-2); EOSINOPHILS 4.3 % (0-7); HEMATOCRIT 30.6 % (36.0-48.0); HEMOGLOBIN 9.4 g/dL (12-16); IMMATURE GRANULOCYTES 0.3 % (0-5); LYMPHOCYTES 13.9 % (15-50); MCH 27.2 pg (26.0-34.0); MCHC 30.7 g/dL (31.0-37.0); MCV 88.7 fL (80.0-100.0); MEAN PLATELET VOLUME 8.9 fL (7.4-10.4); MONOCYTES 11.2 % (2-11); RBC 3.45 10x6/uL (4.00-5.40); RDW 14.1 % (11.5-14.5); WBC 7.6 10x3/uL (4.8-10.8)
[2019-12-11 05:32] LABS: PLATELET COUNT 282 10x3/uL (130-400)
[2019-12-11 08:41] VITALS: BP 182/98
--- NOTE | 2019-12-11 09:11 | NUR ---
ASSESSMENT PER FLOW SHEET. PATIENT IS WITHOUT DISTRESS.PAIN MEDS ORDERED PER JUL FOR PAIN 11/23.MARINO DC WITH CATH TIP INTACT, 450CC OF YELLOW URINE IN DRAINAGE BAG.INCISION X2 TO ABDOMEN APROXIMATED WITH BRISA. INCISIONS WITHOUT DRAINAGE AND MINIMAL REDNESS.OSTOMY SITE CLEAN AND DRY. GABBY DRAIN SITE LLQ CLEAN AND DRY,MINIMAL DRAINAGE IN BULB LIGHT PINK TINTED IN COLOR.POSITION TO LEFT SIDE.CALL LIGHT IN REACH
--- NOTE | 2019-12-11 10:30 | NUR ---
Rehab Prescreening Consult recieved and the chart has been reviewed. She is [facility] managed Medicare and will require a preauth for the acute rehab. She has a PT eval but will need an OT eval. An order for OT was placed on 12/08/19 but it is still pending. Chloe Hayward RN Clinical Liaison, Rehab
[2019-12-11 11:45] VITALS: BP 193/95
--- NOTE | 2019-12-11 12:04 | NUR ---
PATIENT HAS VOIDED APROX 200CC OF URINE
--- NOTE | 2019-12-11 12:59 | NUR ---
Nutrition follow-up: Diet advanced to regular as tolerated Pt consuming ~50% of full liquids Labs reviewed; AST/ALT elevated Wt: 209# +BM; colostomy Will provide food choices with selective menus and honor food preferences. Will offer nutritional supplements. RDN following.
--- NOTE | 2019-12-11 14:47 | NUR ---
Rehab Note- PreAuth initiated & clinicals faxed for review for possible inpatient acute rehab stay. Will follow at this time and await determination from [facility]. Thank you for this referral! Keri Pelaez RN Clinical Liaison, [facility] Rehab
--- NOTE | 2019-12-11 16:20 | NUR ---
HAS BEEN UP TO CHAIR AND BATHROOM. STATES PAIN BETTER, 4/10 SCALE TO ABDOMEN. TOLERATING REGULAR DIET. MONITOR FOR NEEDS.
[2019-12-11 16:40] VITALS: BP 161/86
[2019-12-11 20:00] VITALS: BP 137/74
--- NOTE | 2019-12-11 21:00 | NUR ---
A&O X 4. UP, STANDY BY ASSIST TO BSC. REPORTS PAIN OF 6/10 TO ABDOMEN. MIDLINE BRISA WELL APPROXIMATED. LEFT ABD GABBY DRAIN WITH BLOODY DRAINAGE, COMPRESSED. RIGHT COLOSTOMY PRODUCING LIQUIDY STOOL. NO FURTHER NEEDS VOICED, CTM.
[2019-12-12] VITALS: BP 185/93
--- NOTE | 2019-12-12 | NUR ---
SKIN SURROUNDING IV TO LEFT UPPER ARM REDDENED AND EDEMATOUS. WRISTBAND REMOVED. IV FLUSHES WITH EASE. PT UNABLE TO REPORT PAIN. DISCONNECTED FLUIDS. 22G IV STARTED IN RIGHT FOREARM, 1ST ATTEMPT. CONNECTED FLUIDS AT THIS SITE, CTM.
[2019-12-12 04:00] VITALS: BP 176/88
[2019-12-12 05:16] LABS: BASOPHILS 0.2 % (0-2); EOSINOPHILS 4.8 % (0-7); HEMATOCRIT 31.6 % (36.0-48.0); HEMOGLOBIN 9.9 g/dL (12-16); IMMATURE GRANULOCYTES 0.5 % (0-5); LYMPHOCYTES 17.1 % (15-50); MCH 27.4 pg (26.0-34.0); MCHC 31.3 g/dL (31.0-37.0); MCV 87.5 fL (80.0-100.0); MEAN PLATELET VOLUME 8.8 fL (7.4-10.4); MONOCYTES 14.4 % (2-11); PLATELET COUNT 282 10x3/uL (130-400); RBC 3.61 10x6/uL (4.00-5.40); RDW 13.8 % (11.5-14.5); WBC 8.1 10x3/uL (4.8-10.8)
[2019-12-12 05:24] LABS: ALBUMIN 1.6 g/dL (3.4-5.0); ALKALINE PHOSPHATASE 113 U/L (30-120); BILIRUBIN - TOTAL 0.26 mg/dL (0.2-1.3); CALC OSMOLALITY 274 mosm/kg (275-300); CALCIUM 8.7 mg/dL (8.5-10.1); CARBON DIOXIDE 30.9 mmol/L (21.0-32.0); CHLORIDE - SERUM 103 mmol/L (98-107); CREATININE - SERUM 0.8 mg/dL (0.6-1.3); GLUCOSE 98 mg/dL (74-106); POTASSIUM - SERUM 3.5 mmol/L (3.5-5.1); SODIUM 138 mmol/L (136-145); UREA NITROGEN 9 mg/dL (7-18); eGFR NON AFRICAN AMERICAN 76 mL/min (90-120)
[2019-12-12 05:29] LABS: ALT (SGPT) 189 U/L (10-68)
--- NOTE | 2019-12-12 06:32 | NUR ---
I have reviewed this patient and I concur with the Shift Assessment completed by the Licensed Practical Nurse today this shift.
[2019-12-12 08:42] VITALS: BP 191/89
[2019-12-12 12:45] VITALS: BP 154/75
--- NOTE | 2019-12-12 14:59 | NUR ---
OT NOTE: PT DOING BETTER TODAY, HOWEVER, MOVEMENT/MOBILITY REMAINS VERY SLOW. PT ABLE TO PERFORM SUPINE TO SIT WITHOUT ASSIST WITH HOB ELEVATED TO 90 DEGREES. MIN ASSIST TO FLAVIA GOWN; MAX ASSIST TO FLAVIA SOCKS DUE TO INABLILITY BEND FORWARD DUE TO PAIN. PT AMB WITH WALKER APPROX 30-40 FT WITH EXT TIME, WALKER, AND CGA. TRANSFERRED BACK TO BED WITH CGA.. PT WANTED TO SIT UP ON EOB PRIOR TO LIENG DOWN. RUSSO CAME IN TO FINISH TMT SESSION WITH EXS, ADLS, AND BED MOB. SHEILA [place], OTR/L [phone]
--- NOTE | 2019-12-12 16:18 | NUR ---
OT NOTE: PT COMPLETED BED MOB WITH SBA/CGA. PT ABLE TO BRING LEGS UPON TO BED WITH LITTLE ASSIST. PT COMPLETED LB HYGIENE TASKS WITH SETP. PT COMPLETED BUE ROM WITH FUNCTIONAL TASKS. PT REQUIRED EXTRA TIME WITH TASKS. PT STATED STANDING IS PAINFUL. [phone] THANK YOU,KARAN SWANN
[2019-12-12 17:00] VITALS: BP 171/87
--- NOTE | 2019-12-12 17:02 | NUR ---
Rehab Note- Received verbal auth approval from [facility] from [employer]. Auth #[id number]. Will plan on accepting the patient 12/12. Spoke with MATT Irving. Thank you for this referral! Keri Pelaez RN Clinical Liaison, [facility] Rehab
[2019-12-12 20:00] VITALS: BP 176/87
--- NOTE | 2019-12-12 21:52 | NUR ---
PT UP TO BSC. REPORTS PAIN SHOOTS WHEN STANDING. REQUESTS ICE CREAM. NO FURTHER NEEDS VOICED.
[2019-12-13] VITALS: BP 148/92
--- NOTE | 2019-12-13 01:40 | NUR ---
I have reviewed this patient and I concur with the Shift Assessment completed by the Licensed Practical Nurse today this shift.
[2019-12-13 04:00] VITALS: BP 170/94
[2019-12-13 05:42] LABS: BASOPHILS 0.2 % (0-2); EOSINOPHILS 4.1 % (0-7); HEMATOCRIT 35.7 % (36.0-48.0); HEMOGLOBIN 11.3 g/dL (12-16); IMMATURE GRANULOCYTES 0.5 % (0-5); LYMPHOCYTES 15.3 % (15-50); MCH 27.3 pg (26.0-34.0); MCHC 31.7 g/dL (31.0-37.0); MCV 86.2 fL (80.0-100.0); MEAN PLATELET VOLUME 8.7 fL (7.4-10.4); MONOCYTES 10.3 % (2-11); NEUTROPHILS 69.6 % (40-80); PLATELET COUNT 329 10x3/uL (130-400); RBC 4.14 10x6/uL (4.00-5.40); RDW 13.8 % (11.5-14.5)
[2019-12-13 06:21] LABS: ALKALINE PHOSPHATASE 139 U/L (30-120); ALT (SGPT) 160 U/L (10-68); CALC OSMOLALITY 270 mosm/kg (275-300); CALCIUM 9.5 mg/dL (8.5-10.1); CARBON DIOXIDE 31.2 mmol/L (21.0-32.0); CHLORIDE - SERUM 100 mmol/L (98-107); CREATININE - SERUM 0.7 mg/dL (0.6-1.3); GLUCOSE 99 mg/dL (74-106); POTASSIUM - SERUM 4.2 mmol/L (3.5-5.1); PROTEIN - SERUM 7.2 g/dL (6.4-8.2); SODIUM 136 mmol/L (136-145); UREA NITROGEN 10 mg/dL (7-18); eGFR NON AFRICAN AMERICAN 89 mL/min (90-120)
[2019-12-13 06:22] LABS: ALBUMIN 2.1 g/dL (3.4-5.0)
[2019-12-13 09:17] VITALS: BP 190/99
--- NOTE | 2019-12-13 10:42 | NUR ---
Rehab Note- Have PreAuth approval but currently no bed avaliable due to nursing cap at this time. Will continue to follow and hopefully have bed avaliable tomorrow 12/13. Thank you for this referral! Keri Pelaez RN Clinical Liaison, [facility] Rehab
--- NOTE | 2019-12-13 13:34 | NUR ---
Rehab Note- Currently working on Acute INpatient Rehab precreen for when bed avaliable. The patient is noted Hypertensive, spoke with MATT Valles to notify BARREL DRUM CUTTER/Physician of increased blood pressure concerns. Will continue to follow. Thank you for this referral! Keri Pelaez RN Clinical Liaison, [facility] Rehab
--- NOTE | 2019-12-13 13:47 | NUR ---
Nutrition follow-up: Diet has advanced to regular as tolerated PO Intake ~50-100% of meals Labs reviewed colostomy working Wt: 209# Rehab soon RDN following.
[2019-12-13 14:41] VITALS: BP 136/83
--- NOTE | 2019-12-13 14:55 | NUR ---
OT NOTE: ATTEMPTED TMT IN AM, HOWEVER, PT REPORTED PAIN WAS TOO SEVERE.. PT FEELING MUCH BETTER ON SECOND ATTEMP.. PERFORMED BED MOB WITH MIN ASSIST AND EXT TIME; EOB SITTING WITH GOOD BALANCE; SIT TO STAND WITH WALKER AND MIN ASSIST. REPORTING INCREASED "PRESSURE AND PAIN" WHEN STANDING. PT ASKING ABOUT UNDERWEAR, HOWEVER, THEY WERE TOO TIGHT. PROVIDED PT WITH LIGHTWEIGHT STRETCHY UNDERGARMENT AND PAD. MAX ASSIST TO FLAVIA THIS. PT REPORTED MUCH IMPROVEMENT WITH THIS. AMB APPROX 90 FT TODAY WITH MIN ASSIST AND WALKER ( AND ASSISTANCE WITH IV POLE). PT MOBILIZING AT VERY SLOW PACE. TRANSFERRED TO CHAIR WITH MIN ASSIST; ABLE TO PERFORM ALL GROOMING AND FEEDING WITH SET UP WHILE SITTING UP IN CHAIR. TOILETING WITH MIN ASSIST AND MIN ASSIST FOR HYGIENE. SHEILA [place], OTR/L [phone]
--- NOTE | 2019-12-13 15:04 | NUR ---
WENT TO DC DRAIN. PATIENT UP IN CHAIR AND WANTS MORE TIME TO SIT BEFORE DRAIN DC'D.
--- NOTE | 2019-12-13 15:21 | NUR ---
PATIENT UP IN CHAIR. DENIES PAIN OR NEEDS. CALL LIGHT IN REACH. PHONE IN REACH. WILL CONTINUE TO MONITOR. PATIENT WITHOUT DISTRESS.
--- NOTE | 2019-12-13 16:02 | MORECARE ---
CASE MANAGEMENT DISCHARGE SUMMARY PATIENT: ROBERT HORVATH UNIT: [id number] ADM DATE: 12/04/19 AGE: 64 : 55 SEX: F ROOM/BED: D.2239 AUTHOR: JAX GUTIERREZ PHYSICIAN: REFERRING PHYSICIAN: TALHA PAUL MD DATE OF SERVICE: 12/13/19 Discharge Plan Patient Name: ROBERT HORVATH [facility] [facility] 1955 Planned Disposition: Inpatient Rehab Anticipated Discharge Date: Discharge Date: Expected LOS: Initial Reviewer: [id number] Initial Review Date: 12/13/2019 Generated: 12/13/19 5:01 pm Patient Name: ROBERT HORVATH Page 14423 at 1602 All edits/amendments must be made on the electronic document DICTATION DATE: 12/13/19 1601 OFFSET LITHOGRAPHIC PRESS SETTER: SONIA 12/13/19 1601 RPT#: [id number] DC DATE: STATUS: ADM IN [facility] [address] [place] [address] END OF REPORT
--- NOTE | 2019-12-13 16:09 | MORECARE ---
CASE MANAGEMENT DISCHARGE SUMMARY PATIENT: ROBERT HORVATH UNIT: [id number] ADM DATE: 12/04/19 AGE: 64 : 55 SEX: F ROOM/BED: D.2239 AUTHOR: BRENDADOC PHYSICIAN: REFERRING PHYSICIAN: TALHA PAUL MD DATE OF SERVICE: 12/13/19 Discharge Plan Patient Name: ROBERT HORVATH [facility] [facility] 1955 Planned Disposition: Inpatient Rehab Anticipated Discharge Date: Discharge Date: Expected LOS: Initial Reviewer: [id number] Initial Review Date: 12/13/2019 Generated: 12/13/19 5:08 pm Comments DCP- Discharge Planning Updated by [email or web address]: Reena Mitchell on 12/13/19 3:[address] Patient Name: ROBERT HORVATH Admission Status: ER Accout number: [id number] Admission Date: 12-04-2019 : 1955 Admission Diagnosis:UNSPECIFIED ABDOMINAL PAIN Attending: RAMAKRISHNA PAUL Current LOS: 9 Anticipated DC Date: Planned Disposition: Inpatient Rehab Primary Insurance: [facility] MEDICARE SOLUTIONS Discharge Planning Comments: CM met with patient at bedside after explaining CM role and obtaining verbal consent. CM discussed availability / needs of home health, REHAB and medical equipment. PATIENT PLANS TO BE ADMITTED TO [facility] SOON. CHELSEY AND IMM SIGNED. CM TO FOLLOW AND ASSIST NEEDED. Photograph Developer: Reena Mitchell Coverage Notice Reviewer: [id number] Arthur Mitchell Notice Issued Date-Time: 12/13/2019 16:02 Notice Type: IM Discharge Notice Notice Delivered To: Patient Relationship to Patient: Automobile Damage Field Appraiser Name: Delivery Method: HAND - Hand Delivered Jennifer Days: Prior Verbal Notification: Recipient Understood Notice: Yes Recipient Signature: Yes Med Rec Note Co-signed by Attending: Coverage Notice Comment: Reviewer: [id number] Arthur Mitchell Notice Issued Date-Time: 12/13/2019 16:02 Notice Type: Patient Choice Letter Notice Delivered To: Patient Relationship to Patient: Automobile Damage Field Appraiser Name: Delivery Method: HAND - Hand Delivered Jennifer Days: Prior Verbal Notification: Recipient Understood Notice: Yes Recipient Signature: Yes Med Rec Note Co-signed by Attending: Coverage Notice Comment: [facility] Last DP export: 12/13/19 3:02 p Patient Name: ROBERT HORVATH Page [phone] at 1609 All edits/amendments must be made on the electronic document DICTATION DATE: 12/13/191607 DOUBLE END TENON OPERATOR: SONIA 12/13/191607 RPT#: [id number] DC DATE: STATUS: ADM IN [facility] [address] [place] [address] END OF REPORT
[2019-12-13 17:39] VITALS: BP 140/86
[2019-12-13 20:00] VITALS: BP 170/75
--- NOTE | 2019-12-13 21:00 | NUR ---
COLOSTOMY FULL AND CAME UNATTATCHED. NEW ONE APPLIED, PER SPECIFIC INSTRUCTIONS. PT TOLERATED WELL. CTM.
[2019-12-14] VITALS: BP 185/81
[2019-12-14 04:00] VITALS: BP 187/86
[2019-12-14 04:35] LABS: BASOPHILS 0.2 % (0-2); EOSINOPHILS 5.7 % (0-7); HEMATOCRIT 34.5 % (36.0-48.0); HEMOGLOBIN 10.9 g/dL (12-16); IMMATURE GRANULOCYTES 0.4 % (0-5); LYMPHOCYTES 15.8 % (15-50); MCH 27.3 pg (26.0-34.0); MCHC 31.6 g/dL (31.0-37.0); MCV 86.5 fL (80.0-100.0); MEAN PLATELET VOLUME 8.6 fL (7.4-10.4); MONOCYTES 9.9 % (2-11); PLATELET COUNT 304 10x3/uL (130-400); RBC 3.99 10x6/uL (4.00-5.40); RDW 14.1 % (11.5-14.5); WBC 10.4 10x3/uL (4.8-10.8)
[2019-12-14 05:08] LABS: ALBUMIN 1.9 g/dL (3.4-5.0); BILIRUBIN - TOTAL 0.34 mg/dL (0.2-1.3); CALCIUM 9.4 mg/dL (8.5-10.1); CARBON DIOXIDE 31.4 mmol/L (21.0-32.0); PROTEIN - SERUM 6.5 g/dL (6.4-8.2)
--- NOTE | 2019-12-14 05:11 | NUR ---
I have reviewed this patient and I concur with the Shift Assessment completed by the Licensed Practical Nurse today this shift.
[2019-12-14 05:16] LABS: ANION GAP 7.9 mmol/L (8-16); POTASSIUM - SERUM 4.3 mmol/L (3.5-5.1)
[2019-12-14 05:18] LABS: CREATININE - SERUM 0.9 mg/dL (0.6-1.3)
[2019-12-14 05:53] LABS: BILIRUBIN NEGATIVE (NEGATIVE); GLUCOSE NEGATIVE (NEGATIVE); KETONE NEGATIVE (NEGATIVE); NITRITE NEGATIVE (NEGATIVE); UROBILINOGEN NORMAL (NORMAL)
--- NOTE | 2019-12-14 07:43 | NUR ---
ALERT AND ORIENTED. LUNGS CLEAR BILATERALLY. HEART SOUNDS S1 AND S2 HEARD IN ALL TAVARES. RIGHT SIDE OSTOMY PATENT. DRSG TO LEFT SIDE C/D/I. IV TO RFA PATENT WITHOUT REDNESS. DENIES NEEDS. BED LOW. CALL GRAVES AND PERSONAL ITEMS IN REACH. WILL CONTINUE TO MONITOR.
[2019-12-14 09:03] VITALS: BP 159/92
--- NOTE | 2019-12-14 10:20 | NUR ---
OSTOMY CHANGED D/T LEAKING PER INSTRUCTIONS ON WALL.
--- NOTE | 2019-12-14 12:26 | NUR ---
OT NOTE: PT DOING MUCH BETTER TODAY. NURSING HAD TO CHANGE OUT COLOSTOMY BAG DUE TO LEAKAGE PRIOR TO THERAPY TMT. PT REQIRED INCREASED ASSIST WITH SUPINE TO SIT SHE DIDNT WANT TO DAMAGE WHAT NURSING HAD BEEN WORKING ON. TRANSFERRED TO TOILET WITH MIN ASSIST. MAX ASSIST TO DOFF AND FLAVIA CLEAN MATERNITY UNDERWEAR. PT ABLE TO PERFORM TOILET HYGIENE BUT REQUIRES ASSIST FOR THOROUGH CLEANING. HAND WASHING AND UE DRESSING WITH SET UP. AMB WITH WALKER AT VERY SLOW PACE FOR GREATER THAN 100 FT FOR ENDURANCE TRAINING. STANDING BALANCE AND TOLERANCE HAVE IMPROVED GREATLY OVER LAST SEVERAL DAYS. RECOMMEND IP REHAB PRIOR TO DC HOME, PT CONTINUES TO REQUIRE INCREASED TIME AND ASSISTANCE FOR MOBILITY AND ADLS. SHEILA [place], OTR/L [phone]
--- NOTE | 2019-12-14 12:39 | NUR ---
SITTING IN BED EATING LUNCH. DENIES NEEDS. WILL CONTINUE TO MONITOR.
[2019-12-14 13:00] VITALS: BP 154/82
[2019-12-14] MEDS ORDERED: MERREM 1 GM/NS 11 G1 IV (14:34)
[2019-12-14] MEDS ORDERED: LOMOTIL 2.5-0.1 EAC1 PO (14:35)
[2019-12-14] MEDS ORDERED: LISINOPRIL10 MG PO (14:35)
[2019-12-14 17:36] VITALS: BP 134/82
[2019-12-14 20:00] VITALS: BP 151/85
--- NOTE | 2019-12-14 20:00 | NUR ---
PATIENT RESTING IN BED TALKING ON THE PHONE. NO S/S OF ACUTE DISTRESS. PATIENT COMPLAINS OF "PURSE-STRING PAIN" IN HER ABDOMEN. PAIN MEDICINE WILL BE GIVEN. PATIENT HAS RIGHT FOREARM IV, SALINE LOC. IV IS PATENT WITHOUT REDNESS, SWELLING, OR TENDERNESS. PATIENT HAS A RIGHT SIDE OSTOMY, STOMA IS BEEFY RED. PATIENT HAS DRESSING ON LEFT SIDE FORM GABBY DRAIN THAT WAS REMOVED. PATIENT IS UP ADLIB TO THE BEDSIDE COMMODE. CALL LIGHT WITHIN REACH. WILL CONTINUE TO MONITOR.
--- NOTE | 2019-12-15 01:10 | NUR ---
I have reviewed this patient and I concur with the Shift Assessment completed by the Licensed Practical Nurse today this shift.
[2019-12-15 04:00] VITALS: BP 130/67
[2019-12-15 05:30] LABS: BASOPHILS 0.3 % (0-2); EOSINOPHILS 5.1 % (0-7); HEMATOCRIT 33.9 % (36.0-48.0); HEMOGLOBIN 10.5 g/dL (12-16); IMMATURE GRANULOCYTES 0.7 % (0-5); LYMPHOCYTES 19.4 % (15-50); MCV 87.1 fL (80.0-100.0); MEAN PLATELET VOLUME 8.7 fL (7.4-10.4); MONOCYTES 11.5 % (2-11); PLATELET COUNT 300 10x3/uL (130-400); RBC 3.89 10x6/uL (4.00-5.40); RDW 14.2 % (11.5-14.5); WBC 10.6 10x3/uL (4.8-10.8)
[2019-12-15 05:52] LABS: ALBUMIN 1.9 g/dL (3.4-5.0); ANION GAP 7.9 mmol/L (8-16); BILIRUBIN - TOTAL 0.3 mg/dL (0.2-1.3); CALCIUM 8.9 mg/dL (8.5-10.1); CARBON DIOXIDE 29.4 mmol/L (21.0-32.0); CREATININE - SERUM 1.1 mg/dL (0.6-1.3); POTASSIUM - SERUM 4.3 mmol/L (3.5-5.1); PROTEIN - SERUM 6.4 g/dL (6.4-8.2)
--- NOTE | 2019-12-15 07:27 | NUR ---
ALERT AND ORIENTED. LUNGS CLEAR BILATERALLY. HEART SOUNDS S1 AND S2 HEARD IN ALL TAVARES. OSTOMY TO RIDE SIDE PATENT. DENIES NEEDS. BED LOW. CALL GARVES AND PERSONAL ITEMS IN REACH. WILL CONTINUE TO MONITOR.
[2019-12-15 11:05] VITALS: BP 139/63
--- NOTE | 2019-12-15 12:53 | MORECARE ---
CASE MANAGEMENT DISCHARGE SUMMARY PATIENT: ROBERT HORVATH UNIT: [id number] ADM DATE: 12/04/19 AGE: 64 : 55 SEX: F ROOM/BED: D.2239 AUTHOR: BRENDADOC PHYSICIAN: REFERRING PHYSICIAN: TALHA PAUL MD DATE OF SERVICE: 12/15/19 Discharge Plan Patient Name: ROBERT HORVATH [facility]:[place] : 1955 Planned Disposition: Inpatient Rehab Anticipated Discharge Date: Discharge Date: Expected LOS: Initial Reviewer: [email or web address] Initial Review Date: 12/13/2019 Generated: 12/15/19 1:53 pm Comments DCP- Discharge Planning Updated by [id number]: Reena Mitchell on 12/15/19 11:[address] Patient Name: ROBERT HORVATH Admission Status: ER Accout number: [id number] Admission Date: 12-04-2019 : 1955 Admission Diagnosis:UNSPECIFIED ABDOMINAL PAIN Attending: RAMAKRISHNA PAUL Current LOS: 11 Anticipated DC Date: Planned Disposition: Inpatient Rehab Primary Insurance: [facility] MEDICARE SOLUTIONS Discharge Planning Comments: PATIENT [facility]. NO CHANGE IN PLANS. DAUGHTER AT BEDSIDE. Collector Of Aquarium Specimens: Reena Mitchell DCP- Discharge Planning Updated by [id number]: Reena Mitchell on 12/13/19 3:[address] Patient Name: ROBERT HORVATH Admission Status: ER Accout number: [id number] Admission Date: 12-04-2019 : 1955 Admission Diagnosis:UNSPECIFIED ABDOMINAL PAIN Attending: RAMAKRISHNA PAUL Current LOS: 9 Anticipated DC Date: Planned Disposition: Inpatient Rehab Primary Insurance: [facility] MEDICARE SOLUTIONS Discharge Planning Comments: CM met with patient at bedside after explaining CM role and obtaining verbal consent. CM discussed availability / needs of home health, REHAB and medical equipment. PAT[facility] CHELSEY AND IMM SIGNED. CM TO FOLLOW AND ASSIST NEEDED. Collector Of Aquarium Specimens: Reena Mitchell Coverage Notice Reviewer: [id number] - Reena Mitchell Notice Issued Date-Time: 12/13/2019 16:02 Notice Type: IM Discharge Notice Notice Delivered To: Patient Relationship to Patient: Assistant Drafter Name: Delivery Method: HAND - Hand Delivered Jennifer Days: Prior Verbal Notification: Recipient Understood Notice: Yes Recipient Signature: Yes Med Rec Note Co-signed by Attending: Coverage Notice Comment: Reviewer: [id number] Arthur Mitchell Notice Issued Date-Time: 12/13/2019 16:02 Notice Type: Patient Choice Letter Notice Delivered To: Patient Relationship to Patient: Assistant Drafter Name: Delivery Method: HAND - Hand Delivered Jennifer Days: Prior Verbal Notification: Recipient Understood Notice: Yes Recipient Signature: Yes Med Rec Note Co-signed by Attending: Coverage Notice Comment: [facility] Last DP export: 12/13/19 3:09 p Patient Name: ROBERT HORVATH Page [phone] at 1253 All edits/amendments must be made on the electronic document DICTATION DATE: 12/15/19 1253 WIRE FRAME LAMP SHADE MAKER: SONIA 12/15/19 1253 RPT#: [id number] DC DATE: STATUS: ADM IN [facility] [address] [place] [address] END OF REPORT
[2019-12-15 13:31] VITALS: BP 117/69
--- NOTE | 2019-12-15 14:00 | NUR ---
REPORT CALLED TO SUPERVISOR POWDERED SUGAR.
--- NOTE | 2019-12-15 14:02 | NUR ---
OT NOTE: PT REPORTING FEELING MUCH BETTER TODAY. BED MOB WITH MIN ASSIST; SIT TO STAND WITH CGA AND USE OF WALKER. AMBULATED WITH PT TO IMPROVE STRENGTH AND ENDURANCE.. PT REQUIRED EXTENDED AMOUNT OF TIME AND APPROX 4 REST BREAKS, BUT WAS ABLE TO AMB 250 FT WITH WALKER AND CGA. UPON RETURN TO ROOM, PT TRANSFERRED TO CHAIR WITH MIN ASSIST; PERFORMED GROOMING AND FEEDING WITH SET UP; CONTINUES TO REQUIRE EXT ASSIST WITH LE DRESSING SHE IS UNABLE TO BEND FORWARD AND TRUNK MOBILITY IS MINIMAL, HOWEVER, SHE IS DOING MUCH BETTER. SHEILA [place], OTR/L [phone]
--- NOTE | 2019-12-15 14:33 | NUR ---
PATIENT DC TO REHAB WITH ALL BELONGINGS.
--- NOTE | 2019-12-15 16:58 | MORECARE ---
CASE MANAGEMENT DISCHARGE SUMMARY PATIENT: ROBERT HORVATH UNIT: [id number] ADM DATE: 12/04/19 AGE: 64 : 55 SEX: F ROOM/BED: D.2239 AUTHOR: BRENDADOC PHYSICIAN: REFERRING PHYSICIAN: TALHA PAUL MD DATE OF SERVICE: 12/15/19 Discharge Plan Patient Name: ROBERT HORVATH Facility: [facility]:[place] : 1955 Planned Disposition: Inpatient Rehab Anticipated Discharge Date: Discharge Date: 12/15/2019 Expected LOS: Initial Reviewer: [email or web address] Initial Review Date: 12/13/2019 Generated: 12/15/19 5:57 pm Comments DCP- Discharge Planning Updated by [email or web address]: Reena Mitchell on 12/15/19 11:[address] Patient Name: ROBERT HORVATH Admission Status: ER Accout number: [id number] Admission Date: 12-04-2019 : 1955 Admission Diagnosis:UNSPECIFIED ABDOMINAL PAIN Attending: RAMAKRISHNA PAUL Current LOS: 11 Anticipated DC Date: Planned Disposition: Inpatient Rehab Primary Insurance: [facility] MEDICARE SOLUTIONS Discharge Planning Comments: PATIENT [facility] BE [facility]. NO CHANGE IN PLANS. DAUGHTER AT BEDSIDE. Gin Pole Operator: Reena Mitchell DCP- Discharge Planning Updated by [id number]: Reena Mitchell on 12/13/19 3:[address] Patient Name: ROBERT HORVATH Admission Status: ER Accout number: [id number] Admission Date: 12-04-2019 : 1955 Admission Diagnosis:UNSPECIFIED ABDOMINAL PAIN Attending: RAMAKRISHNA PAUL Current LOS: 9 Anticipated DC Date: Planned Disposition: Inpatient Rehab Primary Insurance: [facility] MEDICARE SOLUTIONS Discharge Planning Comments: CM met with patient at bedside after explaining CM role and obtaining verbal consent. CM discussed availability / needs of home health, REHAB and medical equipment. PATIENT [facility] CHELSEY AND IMM SIGNED. CM TO FOLLOW AND ASSIST NEEDED. Gin Pole Operator: Reena Mitchell Coverage Notice Reviewer: [id number] - Reena Mitchell Notice Issued Date-Time: 12/13/2019 16:02 Notice Type: IM Discharge Notice Notice Delivered To: Patient Relationship to Patient: Dyer And Washer Name: Delivery Method: HAND - Hand Delivered Jennifer Days: Prior Verbal Notification: Recipient Understood Notice: Yes Recipient Signature: Yes Med Rec Note Co-signed by Attending: Coverage Notice Comment: Reviewer: [id number] Arthur Mitchell Notice Issued Date-Time: 12/13/2019 16:02 Notice Type: Patient Choice Letter Notice Delivered To: Patient Relationship to Patient: Dyer And Washer Name: Delivery Method: HAND - Hand Delivered Jennifer Days: Prior Verbal Notification: Recipient Understood Notice: Yes Recipient Signature: Yes Med Rec Note Co-signed by Attending: Coverage Notice Comment: [facility] Last DP export: 12/15/19 11:53 a Patient Name: ROBERT HORVATH Page 11924 at 1658 All edits/amendments must be made on the electronic document DICTATION DATE: 12/15/191656 IN SCHOOL SUSPENSION AIDE: SONIA 12/15/191656 RPT#: [id number] DC DATE:12/15/19 STATUS: DIS IN [facility] [address] [place] [address] END OF REPORT
--- NOTE | 2019-12-15 20:12 | NUR ---
OT NOTE: PT COMPLETED SUPINE TO SIT WITH CGA. PT COMPLETED EOB SITTING WITH SPV. PT COMPLETED SIT TO STAND WITH CGA. PT IS MUCH IMPROVED . PT EXHIBITED LESS C/O PAIN. PT DID REQUEST A PILLOW FOR WHEN SHE COUGHS. [phone] THANK YOU,KARAN SWANN
== END 2019-12-15 14:33 | DRG 329 ==
LOC: D.ER 14:43 → D.MS 18:05
PROVIDERS: Family Medicine; Surgery; ADMIT Emergency Medicine; ATTEND Emergency Medicine
PROC: 0D1B0Z4 Bypass Ileum to Cutaneous, Open Approach (ICD-10-PCS; 2019-12-06)
PROC: 0DTJ0ZZ Resection of Appendix, Open Approach (ICD-10-PCS; 2019-12-06)
PROC: 0W9G4ZZ Drainage of Peritoneal Cavity, Percutaneous Endoscopic Approach (ICD-10-PCS; 2019-12-06)
PROC: 0DTN0ZZ Resection of Sigmoid Colon, Open Approach (ICD-10-PCS; principal; 2019-12-06 09:30)
DX: K57.80 Diverticulitis of intestine, part unspecified, with perforation and abscess without bleeding (principal); K65.1 Peritoneal abscess; N39.0 Urinary tract infection, site not specified; E87.1 Hypo-osmolality and hyponatremia; K63.2 Fistula of intestine; F32.9 Major depressive disorder, single episode, unspecified; I95.9 Hypotension, unspecified; D64.9 Anemia, unspecified

== ENCOUNTER 2019-12-15 13:25 | Inpatient (IN) | payer MEDICARE ==
[~2019-12-15] VITALS: Ht 165.1 cm; Wt 104.3 kg
[~2019-12-15 13:25] MED LIST changes: +LOMOTIL 2.5-0.1 EAC1 PO; +MERREM 1 GM/NS 11 G1 IV
[2019-12-15 18:26] VITALS: BP 116/74; BMI 38.3
[2019-12-15 20:00] VITALS: BP 132/52
--- NOTE | 2019-12-15 20:00 | NUR ---
PATIENT RECEIVED SITTING UP IN BED. ASSESSMENT & VITAL SIGNS DONE. COLOSTOMY GREEN COLOR SOFT GREEN COLOR. NO C/O PAIN OR DISTRESS. IV TO RIGHT FOREARM PATENT. BED LOW. CALL LIGHT WITHIN REACH. WILL CONTINUE TO MONITOR.
--- NOTE | 2019-12-15 22:10 | NUR ---
PATIENT USED CALL LIGHT FOR ASSIST. MINIMAL ASSIST INTO WHEELCHAIR. PATIENT HAD VOID ONLY. PATIENT RETURN TO BED MINIMAL ASSIST. BED LOW. CALL LIGHT WITHIN REACH. WILL CONTINUE TO MONITOR.
[2019-12-16 05:55] LABS: BASOPHILS 0.1 % (0-2); EOSINOPHILS 5.1 % (0-7); HEMATOCRIT 32.3 % (36.0-48.0); HEMOGLOBIN 10.1 g/dL (12-16); IMMATURE GRANULOCYTES 0.6 % (0-5); LYMPHOCYTES 16.7 % (15-50); MCH 27.1 pg (26.0-34.0); MCHC 31.3 g/dL (31.0-37.0); MCV 86.6 fL (80.0-100.0); MEAN PLATELET VOLUME 8.8 fL (7.4-10.4); MONOCYTES 11.4 % (2-11); NEUTROPHILS 66.1 % (40-80); PLATELET COUNT 283 10x3/uL (130-400); RBC 3.73 10x6/uL (4.00-5.40); RDW 14.1 % (11.5-14.5); WBC 11.7 10x3/uL (4.8-10.8)
[2019-12-16 06:08] LABS: ANION GAP 10.7 mmol/L (8-16); CALCIUM 9.3 mg/dL (8.5-10.1); CARBON DIOXIDE 27.5 mmol/L (21.0-32.0); POTASSIUM - SERUM 4.2 mmol/L (3.5-5.1)
--- NOTE | 2019-12-16 06:54 | NUR ---
PATIENT C/O PAIN TO ABDOMEN AFTER THERAPY. BED LOW. CALL LIGHT WITHIN REACH. WILL CONTINUE TO MONITOR.
[2019-12-16 07:30] VITALS: BP 132/63
--- NOTE | 2019-12-16 07:30 | NUR ---
AWAKE.VS TAKEN,ASESSMENT COMPLETED.COLOSTOMY LEAKING FROM WAFER.COLOSTOMY CHANGED BUT UNABLE TO STOP LEAKAGE FROM LOWER WAFER.STOOL IS BROWN LIQUID. WILL CONTINUE WITH CURRENT PLAN OF CARE.BED IN LOW POSITION,CL IN EASY REACH.
[2019-12-16 15:33] VITALS: Ht 165.1 cm; Wt 104.3 kg
--- NOTE | 2019-12-16 19:10 | NUR ---
PATIENT RECEIVED LAYING IN BED. IV ANTIBIOTICS STARTED. NO CHEST PAIN AT THIS TIME. DR. PAUL ORDERED CARDIAC ENZYMES. ASSESSMENT & VITAL SIGNS DONE. BP 138/71 P86. BED LOW. CALL LIGHT WITHIN REACH. WILL CONTINUE TO MONITOR.
[2019-12-16 20:34] VITALS: BP 142/74
--- NOTE | 2019-12-17 01:03 | NUR ---
PATIENT ILLEOSTOMY BAG LEAKING TO RIGHT SIDE. FABRIC TAPE APPLIED, EFFECTIVE. PATIENT SKIN AROUND & UNDER BAG RED & PAINFUL. GREEN LIQUID BM 100 CC REMOVED FROM BAG. PATINE TOILETED, VOID ONLY. BRISA CLEANED. DRESSING APPLIED. IV MERREM INTO RIGHT FOREARM CONTINUES. BED LOW. CALL LIGHT WIOTHIN REACH. WILL CONTINUE TO MONITOR.
--- NOTE | 2019-12-17 01:31 | NUR ---
NO LEAKAGE AT THIS TIME. CLOTH TAPE WORKING. IV FINISHED. NO ADVERSE REACTION AT THIS TIME. BED LOW. CALL LIGHT WITHIN REACH. WILL CONTINUE TO MONITOR.
--- NOTE | 2019-12-17 02:48 | NUR ---
I have reviewed this patient and I concur with the Shift Assessment completed by the Licensed Practical Nurse today this shift.
--- NOTE | 2019-12-17 03:40 | NUR ---
PATIENT AWAKE ON HER PHONE. ILEOSTOMY BAG NOT LEAKING AT THIS TIME. BED LOW. CALL LIGHT WITHIN REACH. WILL CONTINUE TO MONITOR.
[2019-12-17 07:42] VITALS: BP 118/70
--- NOTE | 2019-12-17 08:21 | NUR ---
PT RESTING IN BED WITH EYES OPEN CALL LIGHT IN REACH WILL MONITER
--- NOTE | 2019-12-17 18:21 | NUR ---
PT RESTING IN BED WITH EYES OPEN CALL LIGHT IN REACH NO PROBLEMS WILL MONITER
[2019-12-17 20:00] VITALS: BP 135/70
--- NOTE | 2019-12-17 20:00 | NUR ---
PATIENT RECEIVED SITTING UP IN BED. ASSESSMENT & VITAL SIGNS DONE. ILEOSTOMY HAS YELLOW COLOR SOFT BM. NO C/O PAIN OR DISTRESS AT THIS TIME. BED LOW. CALL LIGHT WITHIN REACH. WILL CONTINUE TO MONITOR.
--- NOTE | 2019-12-17 21:10 | NUR ---
PATIENT USED CALL LIGHT FOR ASSIST. PATIENT STOOD UP WITH MINIMAL ASSIST. ILLEOSTOMY SIDE OF SKIN BARRIER CAME LOOSE. PATIENT AMBULATED WITH ROLLING WALKER INTO BATH ROOM. TOWEL PLACED OVER OPEN AREA. VOID ONLY. PATIENT RETURNED TO BED. PATIENT IN SUPINE POSITION. FLANGE AREA OPEN CLEANED. CLOTH TAPE APPLIED. NO LEAKAGE. PATIENT GIVEN PAIN MEDICATION. PATIENT ADJUSTED BED. CALL LIGHT WITHIN REACH. WILL CONTINUE TO MONITOR.
--- NOTE | 2019-12-18 03:17 | NUR ---
I have reviewed this patient and I concur with the Shift Assessment completed by the Licensed Practical Nurse today this shift.
[2019-12-18 08:00] VITALS: BP 172/82
--- NOTE | 2019-12-18 08:10 | NUR ---
ALERT AND ORIENTED. EATING BREAKFAST. CL IN REACH.
--- NOTE | 2019-12-18 13:46 | NUR ---
NO CHANGE IN ASSESSMENT. ILEOSTOMY IS INTACT. NO C/O PAIN.
--- NOTE | 2019-12-18 16:31 | NUR ---
PARTICIPATED IN THERAPY TODAY. NO DISTRESS NOTED. FAMILY AT BS.
[2019-12-18 19:27] VITALS: BP 122/56
--- NOTE | 2019-12-18 19:35 | NUR ---
PT IN BED WATCHING TV, NO IMMEDIATE NEEDS NOTED, RESPIRATIONS EVEN UNLABORED, FALL PRECAUTIONS IN PLACE, FLUIDS/CALL LIGHT WITHIN REACH
--- NOTE | 2019-12-19 01:33 | NUR ---
PT ASLEEP AROUSES EASILY TO VOICE, NO IMMEDIATE NEEDS NOTED, RESPIRATIONS EVEN UNLABORED, FALL PRECAUTIONS IN PLACE, FLUIDS/CALL LIGHT WITHIN REACH
--- NOTE | 2019-12-19 03:47 | NUR ---
TOILETED AND CHANGED ILEOSTOMY THAT WAS LEAKING, SKIN AROUND ILEOSTOMY IS RED/EXCORIATED, BUTT PASTE USED ON MUCH EXCORIATION POSSIBLE WITHOUT COMPROMISING ADHERENCE OF ILEOSTOMY AFTER IT WAS CHANGED
--- NOTE | 2019-12-19 04:07 | NUR ---
PRN TRAMADOL AND ZOFRAN GIVEN
[2019-12-19 06:22] LABS: ANION GAP 9.5 mmol/L (8-16); CALCIUM 9.3 mg/dL (8.5-10.1); CARBON DIOXIDE 29.1 mmol/L (21.0-32.0); POTASSIUM - SERUM 4.6 mmol/L (3.5-5.1)
[2019-12-19 06:32] LABS: BASOPHILS 0.3 % (0-2); EOSINOPHILS 4.7 % (0-7); HEMATOCRIT 34.5 % (36.0-48.0); HEMOGLOBIN 10.7 g/dL (12-16); IMMATURE GRANULOCYTES 0.6 % (0-5); LYMPHOCYTES 17.3 % (15-50); MCH 26.9 pg (26.0-34.0); MCV 86.7 fL (80.0-100.0); MEAN PLATELET VOLUME 8.9 fL (7.4-10.4); MONOCYTES 9.5 % (2-11); NEUTROPHILS 67.6 % (40-80); RBC 3.98 10x6/uL (4.00-5.40); RDW 14.1 % (11.5-14.5); WBC 10.8 10x3/uL (4.8-10.8)
[2019-12-19 06:33] LABS: PLATELET COUNT 461 10x3/uL (130-400)
[2019-12-19 07:30] VITALS: BP 122/63
--- NOTE | 2019-12-19 12:54 | NUR ---
Nutrition Follow-up: Diet: Regular PO intake: 80-100% x last 7 meals. States that her appetite is "not great." States that her stomach shrunk when she was NPO. Also states that she is having pain from previous UTI and recent ileostomy. She gave good preferences. Last BM: 12/18/19 = 800mL ileostomy output. Wt: 230# (12/16/19) Meds and labs reviewed. Recommend continue current diet. Will update food preferences. RD following.
--- NOTE | 2019-12-19 19:36 | NUR ---
PT IN BED ON PHONE, HAD A GOOD DAY ILEOSTOMY HELD GOOD WITHOUT LEAKING, FALL PRECAUTIONS IN PLACE, NO NEEDS NOTED, FLUIDS/CALL LIGHT WITHIN REACH
[2019-12-19 21:07] VITALS: BP 97/54
--- NOTE | 2019-12-19 21:45 | NUR ---
PT RECIEVED PRN NORCO FOR ABDOMINAL PAIN
[2019-12-20 06:37] LABS: BASOPHILS 0.4 % (0-2); EOSINOPHILS 4.5 % (0-7); HEMATOCRIT 31.6 % (36.0-48.0); HEMOGLOBIN 9.8 g/dL (12-16); IMMATURE GRANULOCYTES 0.5 % (0-5); LYMPHOCYTES 17.8 % (15-50); MCH 26.9 pg (26.0-34.0); MCV 86.8 fL (80.0-100.0); MEAN PLATELET VOLUME 8.7 fL (7.4-10.4); MONOCYTES 11.6 % (2-11); NEUTROPHILS 65.2 % (40-80); PLATELET COUNT 426 10x3/uL (130-400); RBC 3.64 10x6/uL (4.00-5.40); WBC 9.8 10x3/uL (4.8-10.8)
[2019-12-20 06:51] LABS: ANION GAP 11.6 mmol/L (8-16); CALCIUM 9.2 mg/dL (8.5-10.1); CARBON DIOXIDE 27.6 mmol/L (21.0-32.0); CREATININE - SERUM 0.9 mg/dL (0.6-1.3); POTASSIUM - SERUM 5.2 mmol/L (3.5-5.1)
--- NOTE | 2019-12-20 07:25 | NUR ---
ABD BRISA REMOVED.SITE SWABBED WITH BETADINE.PREPPED AND STERI STRIPS APPLIED.LOWER PERTION OF 2ND ABD INCISION LOWER CENTER HAS SMALL OPENING APPEARING LIKE SHALLOW SCABBING.NO DRAINAGE.ILEOSTOMY APPLIANCE SEEMS TO BE STAYING ON.STOOL HAS THICK GRAVY CONSISTANCY.
--- NOTE | 2019-12-20 08:05 | NUR ---
BREAKFAST GIVEN.SITTING UP IN CHAIR.
[2019-12-20 08:08] VITALS: BP 117/69
[2019-12-20 21:15] VITALS: BP 101/52
--- NOTE | 2019-12-20 21:23 | NUR ---
PT UP TO TOILET, SBA, RESPIRATIONS EVEN AND UNLABORED, NO IMMEDIATE NEEDS NOTED, FALL PRECAUTIONS IN PLACE, FLUIDS/CALL LIGHT WITHIN REACH
[2019-12-21] MEDS ORDERED: HYDROCODON-ACE1 EA10 PO (07:23)
--- NOTE | 2019-12-21 07:24 | RHP ---
PATIENT: ROBERT HORVATH MEDICAL RECORD: [id number] ACCOUNT: [id number] LOCATION:[id number] : 55 ADMISSION DATE: 12/15/19 REHABILITATION HISTORY AND PHYSICAL EXAMINATION POST ADMISSION PHYSICIAN EXAMINATION ADMITTING DIAGNOSIS: Disuse myopathy. HISTORY OF PRESENT ILLNESS: The patient is a 64-year-old female patient with a history of hypertension, diverticulitis, left knee replacement, and depression, who recently was hospitalized secondary to UTI and diverticulitis. She was in acute hospital from 11/25 to 12/02, was discharged on Flagyl and Levaquin, presenting with worsening discomfort, decreased p.o. intake and reported loose stools. The patient had general consult and found to have a perforated sigmoid diverticulitis with colo-enteric fistula with intra-abdominal abscess and drain placement and ileostomy placed on 12/05. She had been progressing with both physical and occupational therapy during her stay. She needed to be monitored closely for ileostomy output, monitor for sepsis. She is on antibiotic therapy. She is monitoring her pain control. She has had limited ability to participate with therapy. We need to monitor her I's and O's, electrolyte abnormalities if they come up, proximal muscle weakness, balance deficits, decreased activity tolerance, risk for falls. She needs cues for equipment, low endurance, unsteady gait and balance. The patient lives at home alone. She does have a daughter that lives next door. She was independent with ADLs and also with ambulation prior to this. The patient is currently set up for max assist for ADLs and max assist for mobility. She and her daughter would like to return home at her prior level of functioning. COMORBIDITIES: Include weakness, sepsis, acute diverticulitis, hyponatremia, depression, debility, leukocytosis, colo-enteric fistula, peritonitis. PAST MEDICAL HISTORY: Significant for joint replacement, hysterectomy, depression, UTI. PAST SURGICAL HISTORY: Includes hysterectomy, joint replacement. ALLERGIES: PENICILLIN AND SULFA. CURRENT MEDICATIONS: Include Tylenol 650 daily. She is on thiamine daily. She is on Zoloft 100 mg daily, multivitamin daily, lisinopril 20 mg daily, Protonix 40 mg daily, Lomotil p.r.n., Merrem 1 gram 8 hours p.r.n. She is on polyethylene glycol 17 grams in 8 ounces of water daily, tramadol 50 mg q.6 hours p.r.n. and Zofran as needed. HABITS: No alcohol or tobacco use. FAMILY HISTORY: Noncontributory. SOCIAL HISTORY: The patient hopes to return back home and get back to her prior level of functioning. REVIEW OF SYSTEMS: GENERAL: Does complain of weakness and fatigue. HEENT: Denies cold, cough, or congestion. CARDIOVASCULAR: Denies chest pain. HISTORY AND PHYSICAL [id number] ROBERT HORVATH PHYSICAL EXAMINATION: VITAL SIGNS: Stable, afebrile. GENERAL: A somewhat morbidly obese female in no acute distress upon exam. HEENT: Normocephalic, atraumatic. Mucosa moist. NECK: Supple. No lymphadenopathy. LUNGS: Clear at this time. No wheezing, rhonchi, or rales. HEART: Regular rate and rhythm. No murmurs, rubs, or gallops. ABDOMEN: Soft. She does have postoperative changes. Does have an ileostomy in place. EXTREMITIES: No clubbing, cyanosis or edema. NEUROLOGIC: She does have proximal muscle weakness. LABORATORY DATA: Her white count is 11.7, H&H 10 and 32 and platelet count is 283. Her chemistries are 135, potassium 4.2, BUN and creatinine of 18 and 1.0 and blood sugar is noted to be 101. 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 The patient has potential to make improvement. We instituted the following multidisciplinary therapies including, but not limited to physical, occupational, respiratory, speech, nutritional services, prosthetics and orthotics. Given her complex medical condition and risks for more complications, rehabilitation services cannot be provided at a low level of care such as [facility] facility. PLAN: 1. Admit to [facility] for inpatient therapy to include the following disciplines: A. Physical therapy to improve gait, all transfer skills and bed mobility to a modified independent level. B. Occupational therapy to improve activities of daily living. C. Case management to help with discharge planning and placement options. D. Nutrition to assist with nutritional needs. E. Rehabilitation nursing to assist in monitoring the patient's underlying medical conditions and to assist with any type of bowel or bladder management. 2. The patient's current medication and medical care will be continued. 3. The patient will be her placed on standard fall precautions. 4. The patient's estimated length of stay is approximately 7-10 days. 5. We will discuss this patient during care team staff meeting this week and I will see again in the a.m. Repeat her lab work and treat as needed. TRANSINT:[id number] Voice Confirmation ID: [id number] DOCUMENT ID: [id number] MALIA notes whether there has been none or any medical/functional change since admission: - No change since preadmission screen. MALIA attests patient continues to be appropriate for IRF: - Continues to be appropriate. HISTORY AND PHYSICAL [id number] ROBERT HORVATH,TALHA DURBIN MD at 0724 CC: [id number] DICTATION DATE: 12/18/19 08 BRAKE ASSEMBLER: 12/18/19 1005 ADM IN [place] [id number] [place] [id number]
--- NOTE | 2019-12-21 07:30 | NUR ---
RECEIVED THIS AM RESTING QUIETLY IN BED.ASSESSMENT COMPLETED.DENIES NEEDS AT PRESENT TIME .ILIOSTOMY BAG INTACT.WILL CONTINUE WITH CURRENT PLAN OF CARE.CL IN EASY REACH,BED IN LOW POSITION.
[2019-12-21 08:00] VITALS: BP 153/72
--- NOTE | 2019-12-21 12:25 | NUR ---
CARE TEAM MEETING: PATIENT AND SPOUSE ATTENDED THE MEETING. HER QUESTIONS AND CONCERNS WERE ADDRESSED. HER TENATIVE DISCHARGE DATE IS 12/22/19. SHE HAS A PENDING APPOINTMENT WITH DR. SHEPHERD 01/01/20 @ 2;00. WILL CONTINUE TO FOLLOW WITH PATIENT.
--- NOTE | 2019-12-21 14:59 | NUR ---
CLINICAL UPDATES FAXED TO [facility], LUIS ALBERTO [facility]OSUE, , AUTH. # [id number], WITH A TENATIVE DISCHARGE DATE OF 12/25/19. WILL CONTINUE TO FOLLOW WITH PATIENT.CONFORMATION OF FAX RECIEVED
[2019-12-21 21:07] VITALS: BP 120/69
--- NOTE | 2019-12-22 00:45 | NUR ---
PT ASLEEP, AROUSES EASILY TO VOICE, RESPIRATIONS EVEN AND UNLABORED, NO IMMEDIATE NEEDS NOTED AT THIS TIME, FALL PRECAUTIONS IN PLACE, FLUIDS/CALL LIGHT WITHIN REACH
--- NOTE | 2019-12-22 04:18 | NUR ---
PT ASLEEP, AROUSES EASILY TO VOICE, RESPIRATIONS EVEN AND UNLABORED, NO IMMEDIATE NEEDS NOTED AT THIS TIME, FALL PRECAUTIONS IN PLACE, FLUIDS/CALL LIGHT WITHIN REACH
[2019-12-22 05:53] LABS: BASOPHILS 0.2 % (0-2); EOSINOPHILS 3.4 % (0-7); HEMATOCRIT 31.6 % (36.0-48.0); HEMOGLOBIN 9.9 g/dL (12-16); IMMATURE GRANULOCYTES 0.3 % (0-5); LYMPHOCYTES 22.8 % (15-50); MCH 26.8 pg (26.0-34.0); MCHC 31.3 g/dL (31.0-37.0); MCV 85.6 fL (80.0-100.0); MEAN PLATELET VOLUME 8.6 fL (7.4-10.4); MONOCYTES 12.7 % (2-11); NEUTROPHILS 60.6 % (40-80); PLATELET COUNT 432 10x3/uL (130-400); RBC 3.69 10x6/uL (4.00-5.40); RDW 13.8 % (11.5-14.5); WBC 9.2 10x3/uL (4.8-10.8)
[2019-12-22 06:25] LABS: ANION GAP 13.8 mmol/L (8-16); CALCIUM 8.8 mg/dL (8.5-10.1); CARBON DIOXIDE 27.8 mmol/L (21.0-32.0); CREATININE - SERUM 1.1 mg/dL (0.6-1.3); POTASSIUM - SERUM 4.6 mmol/L (3.5-5.1)
--- NOTE | 2019-12-22 08:00 | NUR ---
ALERT AND ORIENTED X 3 HAVING BREAKFAST, NO NEEDS VOICED
[2019-12-22 08:28] VITALS: BP 139/61
--- NOTE | 2019-12-22 10:31 | NUR ---
PATIENT DISCHARGING HOME TODAY WITH FAMILY. [facility] WILL PROVIDE THERAPY AT HOME. [facility] WILL PROVIDE [facility] SUPPLIES FOR PATIENT. DR. PAINTER 12/29/19 @ 10:45, DR. SHEPHERD 01/01/20 @ 2:00. CHELSEY SIGNED, IMM SERVED AND EXPLAINED, ONE GIVEN TO PATIENT AND ONE FILED IN CHART. NO COMPARE DATA REVIEWED PER PATIENT REQUEST. DISCHARGE INSTRUCTIONS FAXED TO PCP, HOME HEALTH AND TO [facility] AT , AUTH. # [id number] ( CONFORMATION RECIEVED OF FAX) AND REVIEWED WITH PATIENT PER PRIMARY NURSE.
--- NOTE | 2019-12-22 11:40 | NUR ---
REVIEWED DC INSTRUCTIONS AND FOLLOWUP APPT WITH PT, [facility] TO FOLLOW. DC'D VIA WC TO PRIVATE CAR WITH WITH ALL BELONGINGS. MEDS CALLED TO [facility]
== END 2019-12-22 11:40 | disposition home health service (06) | DRG 91 ==
LOC: D.REHAB 13:25
PROVIDERS: ADMIT Emergency Medicine; ATTEND Emergency Medicine
DX: G72.89 Other specified myopathies (principal); A41.9 Sepsis, unspecified organism; K65.9 Peritonitis, unspecified; K65.1 Peritoneal abscess; E87.1 Hypo-osmolality and hyponatremia; N39.0 Urinary tract infection, site not specified; K57.80 Diverticulitis of intestine, part unspecified, with perforation and abscess without bleeding; R53.1 Weakness; F32.9 Major depressive disorder, single episode, unspecified; D72.829 Elevated white blood cell count, unspecified; R53.81 Other malaise

== ENCOUNTER → 2019-12-28 12:40 | Outpatient (CLI) | payer MEDICARE ==
[2019-12-16 15:33] VITALS: BMI 38.2
[~2019-12-28 12:40] MED LIST changes: +HYDROCODON-ACE1 EA10 PO
== END | disposition home or self-care (01) ==
LOC: D.CT 12:40
PROVIDERS: ATTEND Surgery
DX: K57.20 Diverticulitis of large intestine with perforation and abscess without bleeding (principal)

== ENCOUNTER → 2020-02-05 18:11 | Outpatient (CLI) | payer MEDICARE ==
[2019-12-16 15:33] VITALS: BMI 38.2
[2020-02-05 18:30] LABS: BASOPHILS 0.3 % (0-2); EOSINOPHILS 11.4 % (0-7); HEMOGLOBIN 11.8 g/dL (12-16); IMMATURE GRANULOCYTES 0.3 % (0-5); LYMPHOCYTES 29.9 % (15-50); MCH 27.6 pg (26.0-34.0); MCHC 31.1 g/dL (31.0-37.0); MCV 88.8 fL (80.0-100.0); MEAN PLATELET VOLUME 9.1 fL (7.4-10.4); NEUTROPHILS 50.1 % (40-80); RBC 4.28 10x6/uL (4.00-5.40); RDW 16.8 % (11.5-14.5); WBC 7.6 10x3/uL (4.8-10.8)
[2020-02-05 18:32] LABS: PLATELET COUNT 294 10x3/uL (130-400)
[2020-02-05 18:59] LABS: ALBUMIN 3.3 g/dL (3.4-5.0); ANION GAP 15.1 mmol/L (8-16); BILIRUBIN - TOTAL 0.18 mg/dL (0.2-1.3); CALCIUM 9.4 mg/dL (8.5-10.1); CARBON DIOXIDE 22.3 mmol/L (21.0-32.0); CREATININE - SERUM 1.1 mg/dL (0.6-1.3); POTASSIUM - SERUM 5.4 mmol/L (3.5-5.1); PROTEIN - SERUM 7.8 g/dL (6.4-8.2)
== END | disposition home or self-care (01) ==
LOC: D.LAB 18:11
DX: Z48.815 Encounter for surgical aftercare following surgery on the digestive system (principal); K57.20 Diverticulitis of large intestine with perforation and abscess without bleeding; K65.1 Peritoneal abscess; K63.2 Fistula of intestine

== ENCOUNTER → 2020-02-22 16:46 | Outpatient (CLI) | payer MEDICARE ==
[2019-12-16 15:33] VITALS: BMI 38.2
[2020-02-22 16:58] LABS: BASOPHILS 0.5 % (0-2); EOSINOPHILS 6.8 % (0-7); HEMATOCRIT 40.7 % (36.0-48.0); HEMOGLOBIN 12.7 g/dL (12-16); IMMATURE GRANULOCYTES 0.1 % (0-5); LYMPHOCYTES 24.7 % (15-50); MCH 27.7 pg (26.0-34.0); MCHC 31.2 g/dL (31.0-37.0); MCV 88.7 fL (80.0-100.0); MEAN PLATELET VOLUME 9.2 fL (7.4-10.4); MONOCYTES 7.7 % (2-11); NEUTROPHILS 60.2 % (40-80); RBC 4.59 10x6/uL (4.00-5.40); RDW 16.7 % (11.5-14.5); WBC 7.3 10x3/uL (4.8-10.8)
[2020-02-22 17:02] LABS: PLATELET COUNT 215 10x3/uL (130-400)
[2020-02-22 17:15] LABS: ALBUMIN 3.3 g/dL (3.4-5.0); ANION GAP 16.9 mmol/L (8-16); BILIRUBIN - TOTAL 0.2 mg/dL (0.2-1.3); CALCIUM 9.1 mg/dL (8.5-10.1); CARBON DIOXIDE 20.3 mmol/L (21.0-32.0); CREATININE - SERUM 1.3 mg/dL (0.6-1.3); POTASSIUM - SERUM 4.2 mmol/L (3.5-5.1); PROTEIN - SERUM 7.4 g/dL (6.4-8.2)
== END | disposition home or self-care (01) ==
LOC: D.LAB 16:46
DX: Z48.815 Encounter for surgical aftercare following surgery on the digestive system (principal); K57.20 Diverticulitis of large intestine with perforation and abscess without bleeding; K65.1 Peritoneal abscess; K63.2 Fistula of intestine

== ENCOUNTER → 2020-02-29 11:57 | Outpatient (CLI) | payer MEDICARE ==
[2019-12-16 15:33] VITALS: BMI 38.2
[2020-02-29 12:52] LABS: ANION GAP 19.1 mmol/L (8-16); CALCIUM 9.4 mg/dL (8.5-10.1); CARBON DIOXIDE 21.4 mmol/L (21.0-32.0); CREATININE - SERUM 1.1 mg/dL (0.6-1.3); POTASSIUM - SERUM 4.5 mmol/L (3.5-5.1)
== END | disposition home or self-care (01) ==
LOC: D.LAB 11:57
PROVIDERS: ATTEND Family Medicine
DX: K57.20 Diverticulitis of large intestine with perforation and abscess without bleeding (principal); K65.1 Peritoneal abscess; K63.2 Fistula of intestine; Z43.2 Encounter for attention to ileostomy